=== PATIENT | male | born 1960 | race African-American/Black ===

== ENCOUNTER 2017-04-19 00:29 | Emergency (ER) | payer BC, OTHER ==
[~2017-04-19 00:29] MED LIST: ASPI81TA23 PO; ATOR40TA16 PO; BRIM0.2S4 EACH EYE; DORZ1SOL EACH EYE; LATA0.002 EACH EYE; LISI-515 PO; METO25TA3 PO; NAPR500 PO
[2017-04-19 00:35] VITALS: BP 154/99; PULSE 91; RESP 18; TEMP 98.5; O2SAT 98
[2017-04-19 00:40] VITALS: BP 152/102; PULSE 89; RESP 16; O2SAT 99
[2017-04-19] MEDS ORDERED: SODIUM CHLOR 0.9% 1000 ML INJ 1,000 ML IV ONE ×2 (00:52→01:22)
[2017-04-19] MEDS ORDERED: SODIUM CHLORIDE 0.9% FLUSH 10 ML FLUSH IVF PRN (01:00)
[2017-04-19] MEDS ORDERED: INSULIN HUMAN REGULAR 1,000 UNITS/10 ML VIAL IV PUSH ONE (01:00)
[2017-04-19 01:57] LABS: AUTOMATED NEUTROPHIL # 3.6 TH/MM3 (1.8-7.7); BASOPHIL # 0.1 TH/MM3 (0-0.2); BASOPHIL % 0.9 % (0.0-2.0); EOSINOPHIL # 0.3 TH/MM3 (0-0.4); EOSINOPHIL % 3.7 % (0.0-4.0); HEMATOCRIT 43.7 % (39.0-51.0); HEMOGLOBIN 14.3 GM/DL (13.0-17.0); LYMPH % 46.5 % (9.0-44.0); LYMPHOCYTE # 3.9 TH/MM3 (1.0-4.8); MEAN CELL VOLUME 87.1 FL (80.0-100.0); MEAN CORPUSCULAR HEMOGLOBIN 28.5 PG (27.0-34.0); MEAN CORPUSCULAR HGB CONC 32.7 % (32.0-36.0); MEAN PLATELET VOLUME 10.9 FL (7.0-11.0); MONO % 6.4 % (0.0-8.0); MONOCYTE # 0.5 TH/MM3 (0-0.9); NEUT % 42.5 % (16.0-70.0); PLATELET COUNT 156 TH/MM3 (150-450); RED BLOOD COUNT 5.01 MIL/MM3 (4.50-5.90); RED CELL DISTRIBUTION WIDTH 12.6 % (11.6-17.2); WHITE BLOOD COUNT 8.4 TH/MM3 (4.0-11.0)
[2017-04-19 02:01] LABS: BILIRUBIN, URINE NEG (NEG); BLOOD, URINE NEG (NEG); GLUCOSE,URINE 1000 OR GREATER mg/dL (NEG); KETONE, URINE NEG (NEG); NITRITE,URINE NEG (NEG); PH, URINE 5.5 (5.0-8.5); URINE LEUKOCYTE ESTERASE NEG (NEG)
[2017-04-19 02:02] LABS: CHLORIDE 102 MEQ/L (98-107); SODIUM (NA) 134 MEQ/L (136-145)
[2017-04-19 02:06] LABS: ALBUMIN 3.4 GM/DL (3.4-5.0); BICARBONATE 23.9 MEQ/L (21.0-32.0); CALCIUM 8.6 MG/DL (8.5-10.1)
[2017-04-19 02:17] LABS: ALKALINE PHOSPHATASE 105 U/L (45-117); ALT (GPT) 28 U/L (12-78); AST (GOT) 17 U/L (15-37); BLOOD UREA NITROGEN 21 MG/DL (7-18); GLOMERULAR FILTRATION RATE 64 ML/MIN (>89); TOTAL BILIRUBIN ADULT 0.3 MG/DL (0.2-1.0); TOTAL PROTEIN 6.8 GM/DL (6.4-8.2)
[2017-04-19 02:19] LABS: GLUCOSE,RANDOM 412 MG/DL (74-106)
--- NOTE | 2017-04-19 02:22 | PD ---
HPI Chief Complaint: Diabetic Time Seen by Provider: 00:52 Travel History International Travel<30 days: No Contact w/Intl Traveler<30days: No Traveled to known affect area: No History of Present Illness HPI 56-year-old male complains of elevated blood glucose at home about 512. He was diagnosed with diabetes a few days prior and was admitted to [facility]. He was discharged with plan to initiate metformin however was unable to fill a metformin prescription. Dizziness symptoms include a polyuria and polydipsia. No fever. No abdominal pain. Location endocrine. Timing constant. No modifying factor. PFSH Past Medical History Heart Rhythm Problems: No Cancer: No Cardiac Catheterization: No Cardiovascular Problems: Yes High Cholesterol: Yes Chest Pain: Yes (WHEN OMITS BP MED) Congestive Heart Failure: No Diabetes: Yes (BORDERLINE, NO MEDS) Patient Takes Glucophage: No Diminished Hearing: No Endocrine: No Gastrointestinal Disorders: No Glaucoma: Yes Genitourinary: No Heparin Induced Thrombocytopen: No Hypertension: Yes Immune Disorder: No Implanted Vascular Access Dvce: No Musculoskeletal: No Neurologic: No Psychiatric: No Reproductive: No Respiratory: No Immunizations Current: Yes Myocardial Infarction: No Thyroid Disease: No PNEUMOCCOCAL Vaccine (Year): 2010 ?: Not Past Surgical History Coronary Artery Bypass Graft: No Eye Surgery: Yes Joint Replacement: Yes (LEFT HIP) Pacemaker: No Other Surgery: Yes (HEMORRHOIDS) Family History Family Myocardial Infarction: No Social History Alcohol Use: Yes (BEER OCC) Tobacco Use: No Substance Use: No Allergies-Medications (Allergen,Severity, Reaction): Coded Allergies: No Known Allergies (Verified Allergy, Unknown, 04/18/17) Reported Meds & Prescriptions Reported Meds & Active Scripts Active Metoprolol Tartrate 25 Mg Tab 25 Mg PO BID Cosopt Pf Opth Drops (Dorzolamide-Timolol Pf Opth Drops) 22.3-6.8 mg/ml Soln 1 Drop EACH EYE BID Latanoprost Opth Drops (Latanoprost) 0.005% Drops 1 Drop EACH EYE HS Refrigerate until opened. Brimonidine Opth Drops (Brimonidine Tartrate) 0.2% Soln 1 Drop EACH EYE BID Lisinopril 20 Mg Tab 20 Mg PO DAILY Atorvastatin (Atorvastatin Calcium) 40 Mg Tab 40 Mg PO HS Reported Aspirin EC (Aspirin) 81 Mg Tabdr 81 Mg PO DAILY Review of Systems Except as stated in HPI: all other systems reviewed are Neg General / Constitutional: No: Fever Physical Exam Narrative GENERAL: 56-year-old male well-nourished well-developed no acute distress SKIN: Focused skin assessment warm/dry. HEAD: Atraumatic. Normocephalic. EYES: Pupils equal and round. No scleral icterus. No injection or drainage. ENT: No nasal bleeding or discharge. Mucous membranes pink and moist. NECK: Trachea midline. No JVD. CARDIOVASCULAR: Regular rate and rhythm. No murmur appreciated. RESPIRATORY: No accessory muscle use. Clear to auscultation. Breath sounds equal bilaterally. GASTROINTESTINAL: Abdomen soft, non-tender, nondistended. Hepatic and splenic margins not palpable. MUSCULOSKELETAL: No obvious deformities. No clubbing. No cyanosis. No edema. NEUROLOGICAL: Awake and alert. No obvious cranial nerve deficits. Motor grossly within normal limits. Normal speech. PSYCHIATRIC: Appropriate mood and affect; insight and judgment normal. Data Data Last Documented VS Vital Signs Date Time Temp Pulse Resp B/P (MAP) Pulse Ox O2 Delivery O2 Flow Rate FiO2 04/19/17 03:35 87 16 134/85 (101) 04/19/17 02:39 99 Room Air 04/19/17 00:35 98.5 Vital signs reviewed Orders Orders Complete Blood Count With Diff (04/19/17 00:52) Comprehensive Metabolic Panel (04/19/17 00:52) Beta Hydroxybutyrate (Acetone) (04/19/17 00:52) Urinalysis - C+S If Indicated (04/19/17 00:52) Blood Glucose (04/19/17 00:52) Blood Glucose (04/19/17 01:52) Blood Glucose (04/19/17 00:52) Ecg Monitoring (04/19/17 00:52) Iv Access Insert/Monitor (04/19/17 00:52) Oximetry (04/19/17 00:52) NPO (04/19/17 00:52) Sodium Chlor 0.9% 1000 Ml Inj (Ns 1000 M (04/19/17 00:52) Sodium Chlor 0.9% 1000 Ml Inj (Ns 1000 M (04/19/17 01:22) Sodium Chloride 0.9% Flush (Ns Flush) (04/19/17 01:00) Insulin Human Regular Inj (Novolin R Inj (04/19/17 01:00) Ed Discharge Order (04/19/17 04:02) Metformin (Glucophage) (04/19/17 04:30) Labs Laboratory Tests Test 04/19/17 01:30 White Blood Count 8.4 TH/MM3 Red Blood Count 5.01 MIL/MM3 Hemoglobin 14.3 GM/DL Hematocrit 43.7 % Mean Corpuscular Volume 87.1 FL Mean Corpuscular Hemoglobin 28.5 PG Mean Corpuscular Hemoglobin Concent 32.7 % Red Cell Distribution Width 12.6 % Platelet Count 156 TH/MM3 Mean Platelet Volume 10.9 FL Neutrophils (%) (Auto) 42.5 % Lymphocytes (%) (Auto) 46.5 % Monocytes (%) (Auto) 6.4 % Eosinophils (%) (Auto) 3.7 % Basophils (%) (Auto) 0.9 % Neutrophils # (Auto) 3.6 TH/MM3 Lymphocytes # (Auto) 3.9 TH/MM3 Monocytes # (Auto) 0.5 TH/MM3 Eosinophils # (Auto) 0.3 TH/MM3 Basophils # (Auto) 0.1 TH/MM3 CBC Comment DIFF FINAL Differential Comment Urine Color YELLOW Urine Turbidity CLEAR Urine pH 5.5 Urine Specific [place] 1.024 Urine Protein NEG mg/dL Urine Glucose (UA) 1000 OR GREATER mg/dL Urine Ketones NEG mg/dL Urine Occult Blood NEG Urine Nitrite NEG Urine Bilirubin NEG Urine Leukocyte Esterase NEG Urine WBC 0-2 /hpf Urine Squamous Epithelial Cells 0-5 /hpf Microscopic Urinalysis Comment CULT NOT INDICATED Blood Urea Nitrogen 21 MG/DL Creatinine 1.40 MG/DL Random Glucose 412 MG/DL Total Protein 6.8 GM/DL Albumin 3.4 GM/DL Calcium Level 8.6 MG/DL Alkaline Phosphatase 105 U/L Aspartate Amino Transf (AST/SGOT) 17 U/L Alanine Aminotransferase (ALT/SGPT) 28 U/L Total Bilirubin 0.3 MG/DL Sodium Level 134 MEQ/L Potassium Level 3.9 MEQ/L Chloride Level 102 MEQ/L Carbon Dioxide Level 23.9 MEQ/L Anion Gap 8 MEQ/L Estimat Glomerular Filtration Rate 64 ML/MIN B-Hydroxybutyrate 0.12 MMOL/L MDM Medical Decision Making Medical Screen Exam Complete: Yes Emergency Medical Condition: Yes Differential Diagnosis DKA, hyperglycemia, renal failure Narrative Course CBC & BMP Diagram 04/19/17 01:30 Total Protein 6.8, Albumin 3.4, Calcium Level 8.6, Alkaline Phosphatase 105, Aspartate Amino Transf (AST/SGOT) 17, Alanine Aminotransferase (ALT/SGPT) 28, Total Bilirubin 0.3 Patient has received 2 L normal saline and 4 units insulin. If the glucose normalizes the patient will be suitable for discharge with plan to initiate metformin tomorrow. Repeat glucose 260 and the patient's ready for discharge. First dose of Glucophage given here. Diagnosis Primary Impression: Hyperglycemia Additional Impression: Diabetes Qualified Codes: E11.8 - Type 2 diabetes mellitus with unspecified complications Med/Other Pt SpecificInfo: No Change to Meds Disposition: DISCHARGE HOME Condition: Stable Wilman Barros MD Apr 19, 2017 02:22
[2017-04-19 02:23] LABS: URINE COLOR YELLOW (YELLW/STRAW)
[2017-04-19 02:27] LABS: SQUAMOUS EPITHELIAL CELL URINE 0-5 /hpf (0-5); WBC, URINE 0-2 /hpf (0-5)
[2017-04-19 02:39] VITALS: BP 143/83; PULSE 82; RESP 16; O2SAT 99
[2017-04-19 03:35] VITALS: BP 134/85; PULSE 87; RESP 16
[2017-04-19] MEDS ORDERED: metFORMIN HCL 500 MG TAB PO ONE (04:30)
[2017-04-19 04:46] VITALS: BP 136/77
[2017-04-19] MEDS ORDERED: LISI-515 PO (12:23)
[2017-04-19] MEDS ORDERED: ATOR40TA16 PO (12:23)
[2017-04-19] MEDS ORDERED: METF500T PO (12:23)
[2017-04-19] MEDS ORDERED: GLIP5TAB8 PO (12:23)
== END 2017-04-19 04:50 | disposition home or self-care (01) ==
LOC: PHED 00:29
DX: E11.65 Type 2 diabetes mellitus with hyperglycemia (principal); E78.00 Pure hypercholesterolemia, unspecified; I10 Essential (primary) hypertension; H40.9 Unspecified glaucoma; Z79.82 Long term (current) use of aspirin
CPT/HCPCS: 80053; 81001; 82010; 85025; 96361; 96374; 99284; J1815; J7030

== ENCOUNTER 2017-09-26 13:54 | Emergency (ER) | payer BC, OTHER ==
[~2017-09-26] VITALS: Ht 172.7 cm; Wt 88.8 kg
[~2017-09-26 13:54] MED LIST changes: +GLIP5TAB8 PO; +METF500T PO; -NAPR500 PO
[2017-09-26 13:58] VITALS: BP 163/86; PULSE 90; RESP 16; TEMP 97.8; O2SAT 99
[2017-09-26] MEDS ORDERED: HEART MED (14:06)
[2017-09-26] MEDS ORDERED: INSULIN (14:06)
[2017-09-26] MEDS ORDERED: AZIT250T3 PO (14:35)
[2017-09-26] MEDS ORDERED: BENZ100 PO (14:35)
[2017-09-26] MEDS ORDERED: ALBUAER3 INH (14:35)
--- NOTE | 2017-09-26 14:35 | PD ---
HPI Chief Complaint: Cold / Flu Symptoms Time Seen by Provider: 14:07 Travel History International Travel<30 days: No Contact w/Intl Traveler<30days: No Traveled to known affect area: No History of Present Illness HPI 57-year-old male here with productive cough 1 week. He reports exposure to student who is currently hospitalized with pneumonia and was concerned by this news therefore came into the ER for evaluation. Denies fever or chills. Reports sputum production is colored. No chest pain or shortness of breath. Occasional wheezing. Symptom severity is mild to moderate. No aggravating or alleviating factors. PFSH Past Medical History Heart Rhythm Problems: No Cancer: No Cardiac Catheterization: No Cardiovascular Problems: Yes High Cholesterol: Yes Chest Pain: Yes (WHEN OMITS BP MED) Congestive Heart Failure: No Diabetes: Yes Patient Takes Glucophage: Yes Diminished Hearing: No Endocrine: No Gastrointestinal Disorders: No Glaucoma: Yes Genitourinary: No Heparin Induced Thrombocytopen: No Hypertension: Yes Immune Disorder: No Implanted Vascular Access Dvce: No Musculoskeletal: No Neurologic: No Psychiatric: No Reproductive: No Respiratory: No Immunizations Current: Yes Myocardial Infarction: No Thyroid Disease: No PNEUMOCCOCAL Vaccine (Year): 2010 Past Surgical History Coronary Artery Bypass Graft: No Eye Surgery: Yes Joint Replacement: Yes (LEFT HIP) Pacemaker: No Other Surgery: Yes (HEMORRHOIDS) Social History Alcohol Use: Yes (BEER OCC) Tobacco Use: No Substance Use: No Allergies-Medications (Allergen,Severity, Reaction): Coded Allergies: No Known Allergies (Verified Allergy, Unknown, 09/26/17) Reported Meds & Prescriptions Reported Meds & Active Scripts Active Glipizide 5 Mg Tab 5 Mg PO DAILY Take 30 minutes before a meal Metformin (Metformin HCl) 500 Mg Tab 1,000 Mg PO BIDPC Lisinopril 20 Mg Tab 20 Mg PO DAILY Cosopt Pf Opth Drops (Dorzolamide-Timolol Pf Opth Drops) 22.3-6.8 mg/ml Soln 1 Drop EACH EYE BID Latanoprost Opth Drops (Latanoprost) 0.005% Drops 1 Drop EACH EYE HS Refrigerate until opened. Brimonidine Opth Drops (Brimonidine Tartrate) 0.2% Soln 1 Drop EACH EYE BID Reported [Heart Med] [Insulin] Unknown Dose Review of Systems Except as stated in HPI: all other systems reviewed are Neg General / Constitutional: No: Fever Eyes: No: Visual changes HENT: No: Headaches Cardiovascular: No: Chest Pain or Discomfort Respiratory: Positive: Cough Gastrointestinal: No: Abdominal Pain Genitourinary: No: Dysuria Musculoskeletal: No: Pain Skin: No Rash Physical Exam Narrative GENERAL: Alert and well-appearing 57-year-old male. SKIN: Warm and dry. HEAD: Normocephalic. EYES: No injection or drainage. NECK: Supple CARDIOVASCULAR: Regular rate and rhythm without murmurs, gallops, or rubs. RESPIRATORY: Breath sounds equal bilaterally. No accessory muscle use. Rhonchorous cough GASTROINTESTINAL: Abdomen soft, non-tender, nondistended. MUSCULOSKELETAL: No cyanosis, or edema. BACK: Nontender without obvious deformity. No CVA tenderness. Data Data Last Documented VS Vital Signs Date Time Temp Pulse Resp B/P (MAP) Pulse Ox O2 Delivery O2 Flow Rate FiO2 09/26/17 13:58 97.8 90 16 163/86 (111) 99 MDM Medical Decision Making Medical Screen Exam Complete: Yes Emergency Medical Condition: Yes Differential Diagnosis Bronchitis, pneumonia, influenza Narrative Course 57-year-old male here with bronchitis. He is nontoxic appearing. He will be treated with azithromycin, Tessalon Perles, bronchodilator. Diagnosis Primary Impression: Bronchitis Referrals: Primary Care Physician Departure Forms: Tests/Procedures, Work Release Enter return to work date: September 28, 2017 Additional Instructions: Antibiotics as directed. Drink plenty of fluid. Follow-up with your primary doctor. Return if you have new or worsening symptoms. Scripts Albuterol 8.5 GM Inh (Proair Hfa 8.5 GM Inh) 90 Mcg/Act Aer 2 PUFF INH Q4-6H Y for SHORTNESS OF BREATH, #1 INHALER 0 Refills 108 mcg/actuation Prov: Ursula Zacarias [employer] 09/26/17 Benzonatate (Tessalon Perles) 100 Mg Cap 200 MG PO TID Y for COUGH, #12 CAP 0 Refills Prov: Ursula Zacarias [employer] 09/26/17 Azithromycin (Azithromycin) 250 Mg Tab 250 MG PO DIRECTED for Infection, #6 TAB 0 Refills Take 2 tabs (500 mg) on day 1 then 1 tab daily x 4 days. Prov: Ursula Zacarias [employer] 5/28/18 Disposition: 01 DISCHARGE HOME Condition: Stable Leedy,Ursula N [employer] September 26, 2017 14:35
== END 2017-09-26 14:50 | disposition home or self-care (01) ==
LOC: PHEFT 13:54
DX: J40 Bronchitis, not specified as acute or chronic (principal); E11.9 Type 2 diabetes mellitus without complications; E78.00 Pure hypercholesterolemia, unspecified; I10 Essential (primary) hypertension; H40.9 Unspecified glaucoma; Z79.84 Long term (current) use of oral hypoglycemic drugs; Z79.899 Other long term (current) drug therapy
CPT/HCPCS: 99283

== ENCOUNTER 2017-10-21 06:20 | Inpatient (IN) | payer OTHER ==
[2017-10-21] VITALS (11 sets, daily range): BP systolic 136–168; BP diastolic 78–101; PULSE 71–90; RESP 16–18; TEMP 98.4; O2SAT 97–98
[~2017-10-21] VITALS: Ht 172.7 cm; Wt 92.7 kg
[~2017-10-21 06:20] MED LIST changes: +ALBUAER3 INH; -ASPI81TA23 PO; -ATOR40TA16 PO; +AZIT250T3 PO; +BENZ100 PO; +HEART MED; +INSULIN; -METO25TA3 PO
[2017-10-21] MEDS ORDERED: IODIXANOL 320 MG/ML 10 ML VIAL (for Rad CT) IVCONTRAST ONE (06:21)
--- NOTE | 2017-10-21 07:33 | RADRPT ---
EXAM DATE: 10/21/2017 7:29 AM EDT AGE/SEX: 57 years / Male INDICATIONS: Patient complains of headache and right ear pain. CLINICAL DATA: This is the patient's initial encounter. Patient reports that signs and symptoms have been present for 1 day and indicates a pain score of 10/10. MEDICAL/SURGICAL HISTORY: Hypertension. Diabetes. None. RADIATION DOSE: 38.35 CTDI (mGy) COMPARISON: No prior exams available for comparison. TECHNIQUE: CT of the head without contrast. Using automated exposure control and adjustment of the mA and/or kV according to patient size, radiation dose was kept as low as reasonably achievable to ob tain optimal diagnostic quality images. DICOM format image data is available electronically for revi ew and comparison. FINDINGS: Cerebrum: The ventricles are normal. No midline shift, mass lesion, hemorrhage or acute infarction. No extraaxial fluid collections are seen. Posterior Fossa: The cerebellum and brainstem demonstrate no acute abnormality. The 4th ventricle is midline. The cerebellopontine angle is within normal limits. Extracranial: The visualized sinuses are clear. The mastoid air cells are clear. Skull: The calvaria is intact. No skull fracture. CONCLUSION: Negative noncontrast head CT. No abnormality is identified to explain the clinical symptoms. Electronically signed by: Jose Maria Olivera MD 10/21/2017 7:31 AM EDT
[2017-10-21] MEDS ORDERED: LEVEMIR SQ ×2 (07:40)
--- NOTE | 2017-10-21 07:45 | PD ---
HPI Chief Complaint: Headache Time Seen by Provider: 07:28 Travel History International Travel<30 days: No Contact w/Intl Traveler<30days: No Traveled to known affect area: No History of Present Illness HPI Patient presents to the emergency department complaining of headache and right ear pain that started 4 AM this morning. New onset. Pain is described as being 10 out of 10, constant, moves to right ear, on the right side of his head , no alleviating or aggravating factors, he took pain medication this morning with no relief of symptoms. Dates that his neck is somewhat sore on the right side, also states that the light bothers his headache just a little bit. He denies fever, chills, nausea, vomiting, numbness, tingling, vision change, slurred speech, chest pain, shortness of breath, rash, difficulty ambulating. PFSH Past Medical History Heart Rhythm Problems: No Cancer: No Cardiac Catheterization: No Cardiovascular Problems: Yes (HTN ) High Cholesterol: Yes Chest Pain: Yes (WHEN OMITS BP MED) Congestive Heart Failure: No Diabetes: Yes (INSULIN ) Patient Takes Glucophage: No Diminished Hearing: No Endocrine: No Gastrointestinal Disorders: No Glaucoma: Yes Genitourinary: No Heparin Induced Thrombocytopen: No Hypertension: Yes Immune Disorder: No Implanted Vascular Access Dvce: No Musculoskeletal: No Neurologic: No Psychiatric: No Reproductive: No Respiratory: No Immunizations Current: Yes Myocardial Infarction: No Thyroid Disease: No PNEUMOCCOCAL Vaccine (Year): 2010 Past Surgical History Coronary Artery Bypass Graft: No Eye Surgery: Yes Joint Replacement: Yes (LEFT HIP) Pacemaker: No Other Surgery: Yes (HEMORRHOIDS) Social History Alcohol Use: Yes (BEER OCC) Tobacco Use: No Substance Use: No Allergies-Medications (Allergen,Severity, Reaction): Coded Allergies: No Known Allergies (Verified Allergy, Unknown, 09/26/17) Reported Meds & Prescriptions Reported Meds & Active Scripts Active Glipizide 5 Mg Tab 5 Mg PO DAILY Take 30 minutes before a meal Metformin (Metformin HCl) 500 Mg Tab 1,000 Mg PO BIDPC Lisinopril 20 Mg Tab 20 Mg PO DAILY Cosopt Pf Opth Drops (Dorzolamide-Timolol Pf Opth Drops) 22.3-6.8 mg/ml Soln 1 Drop EACH EYE BID Latanoprost Opth Drops (Latanoprost) 0.005% Drops 1 Drop EACH EYE HS Refrigerate until opened. Brimonidine Opth Drops (Brimonidine Tartrate) 0.2% Soln 1 Drop EACH EYE BID Reported Levemir Inj (Insulin Detemir) 1,000 unit/ 10 ML Vial 10 Units SQ HS Do not mix with any other Insulin. Levemir Inj (Insulin Detemir) 1,000 unit/ 10 ML Vial 30 Units SQ AC BREAKFAST Do not mix with any other Insulin. [Heart Med] Review of Systems Except as stated in HPI: all other systems reviewed are Neg Physical Exam Narrative GENERAL: No acute distress. SKIN: Focused skin assessment warm/dry. HEAD: Atraumatic. Normocephalic. Positive swelling anterior to ear bilat, he is also tender to palpation. EYES: Pupils equal and round. Extraocular muscles intact bilaterally. No scleral icterus. No injection or drainage. ENT: No nasal bleeding or discharge. Mucous membranes pink and moist. TMs clear bilaterally. NECK: Trachea midline. No JVD. CARDIOVASCULAR: Regular rate and rhythm. No murmur appreciated. RESPIRATORY: No accessory muscle use. Clear to auscultation. Breath sounds equal bilaterally. GASTROINTESTINAL: Abdomen soft, non-tender, nondistended. Hepatic and splenic margins not palpable. MUSCULOSKELETAL: No obvious deformities. No clubbing. No cyanosis. No edema. NEUROLOGICAL: Awake and alert. Patient unable to keep right eye shut. Also unable to show all of his teeth when he smiles on the right. Motor grossly within normal limits. Normal speech. PSYCHIATRIC: Appropriate mood and affect; insight and judgment normal. NIH stroke scale: 2 R facial palsy Data Data Last Documented VS Vital Signs Date Time Temp Pulse Resp B/P (MAP) Pulse Ox O2 Delivery O2 Flow Rate FiO2 10/21/17 10:16 84 18 157/91 (113) 97 Room Air 10/21/17 06:[address] Brain W/O Iv Contrast(Rout) (10/21/17 06:36) Electrocardiogram (10/21/17 07:37) Complete Blood Count With Diff (10/21/17 07:37) Comprehensive Metabolic Panel (10/21/17 07:37) Prothrombin Time / Inr (Pt) (10/21/17 07:37) Act Partial Throm Time (Ptt) (10/21/17 07:37) Magnesium (Mg) (10/21/17 07:37) Chest, Single Ap (10/21/17 07:37) Iv Access Insert/Monitor (10/21/17 07:37) Ecg Monitoring (10/21/17 07:37) Oximetry (10/21/17 07:37) Ckmb (Isoenzyme) Profile (10/21/17 07:37) Troponin I (10/21/17 07:37) Ct Facial Bones W/O Iv Cont (10/21/17 07:37) CKMB (10/21/17 04:55) CKMB% (10/21/17 04:55) Ct Brain W/O Iv Contrast(Rout) (10/21/17 ) Cta Brain W Iv Contrast W 3d (10/21/17 09:48) Cta Neck W Iv Contrast W 3d (10/21/17 09:48) Labetalol Inj (Trandate Inj) (10/21/17 10:00) Iodixanol 320 Inj (Rad Ct) (Visipaque 32 (10/21/17 06:21) Mri Brain W/O Contrast (10/21/17 10:19) Sodium Chlor 0.9% 250 Ml Inj (Ns 250 Ml (10/21/17 10:30) Sodium Chlor 0.9% 1000 Ml Inj (Ns 1000 M (10/21/17 10:30) ^ Call Pharmacy (10/21/17 10:29) Nih Stroke Scale - Nihss .ONCE (10/21/17 10:29) Urinary Catheter Insert/Apply (10/21/17 10:29) Anticoagulant Alert (10/21/17 10:29) ^ Post Infusion Restrictions (10/21/17 10:29) ^ Medication Alert (10/21/17 10:29) Vital Signs (Adult) .As directed (10/21/17 10:29) Notify Dr: Blood Pressure (10/21/17 10:29) ^ Medication Alert (10/21/17 10:29) Alteplase Bolus (Activase Bolus) (10/21/17 10:30) Alteplase Drip (Activase Drip) (10/21/17 10:30) Sodium Chloride 0.9% Inj (Ns Inj) (10/21/17 10:30) Nursing Information (Misc Nursing Inform (10/21/17 10:30) Resp Oxygen Nc Stroke (10/21/17 ) Us Carotid Arteries Comp Bilat (10/21/17 ) Echo 2d Comp With Doppler (10/21/17 ) Valacyclovir (Valtrex) (10/21/17 21:00) Prednisone (Deltasone) (10/22/17 09:00) Mri Brain W&W/O Contrast (10/21/17 ) Admit Order (Ed Use Only) (10/21/17 10:37) Labs Laboratory Tests Test 10/21/17 04:55 White Blood Count 7.6 TH/MM3 Red Blood Count 4.90 MIL/MM3 Hemoglobin 14.0 GM/DL Hematocrit 42.0 % Mean Corpuscular Volume 85.7 FL Mean Corpuscular Hemoglobin 28.6 PG Mean Corpuscular Hemoglobin Concent 33.3 % Red Cell Distribution Width 13.0 % Platelet Count 166 TH/MM3 Mean Platelet Volume 9.8 FL Neutrophils (%) (Auto) 63.9 % Lymphocytes (%) (Auto) 28.7 % Monocytes (%) (Auto) 5.4 % Eosinophils (%) (Auto) 1.3 % Basophils (%) (Auto) 0.7 % Neutrophils # (Auto) 4.8 TH/MM3 Lymphocytes # (Auto) 2.2 TH/MM3 Monocytes # (Auto) 0.4 TH/MM3 Eosinophils # (Auto) 0.1 TH/MM3 Basophils # (Auto) 0.1 TH/MM3 CBC Comment DIFF FINAL Differential Comment Prothrombin Time 11.0 SEC Prothromb Time International Ratio 1.1 RATIO Activated Partial Thromboplast Time 24.1 SEC Blood Urea Nitrogen 20 MG/DL Creatinine 1.35 MG/DL Random Glucose 243 MG/DL Total Protein 6.6 GM/DL Albumin 3.4 GM/DL Calcium Level 8.7 MG/DL Magnesium Level 1.6 MG/DL Alkaline Phosphatase 85 U/L Aspartate Amino Transf (AST/SGOT) 8 U/L Alanine Aminotransferase (ALT/SGPT) 18 U/L Total Bilirubin 0.3 MG/DL Sodium Level 135 MEQ/L Potassium Level 4.2 MEQ/L Chloride Level 102 MEQ/L Carbon Dioxide Level 24.2 MEQ/L Anion Gap 9 MEQ/L Estimat Glomerular Filtration Rate 67 ML/MIN Total Creatine Kinase 163 U/L Creatine Kinase MB 1.4 NG/ML Troponin I LESS THAN 0.02 NG/ML MDM Medical Decision Making Medical Screen Exam Complete: Yes Emergency Medical Condition: Yes Interpretation(s) ECG: Sinus rhythm, rate 73, normal intervals, right axis, Labs: Creatinine and glucose increased Last Impressions Head CTA 10/21/17 0948 Signed Impressions: CONCLUSION: Negative CTA of the head. Maxillofacial CT 10/21/17736 Signed Impressions: CONCLUSION: 1. The orbits appear normal. 2. 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 3. Mild asymmetry to the tonsils with the right side appearing slightly more p rominent. This area can be directly inspected. Chest X-Ray 10/21/17736 Signed Impressions: CONCLUSION: No acute cardiopulmonary process. Head CT 10/21/1736 Signed Impressions: CONCLUSION: Negative noncontrast head CT. No abnormality is identified to explain the clini edmund symptoms. Head CT 10/21/17 0000 Signed Impressions: CONCLUSION: Negative noncontrast head CT. Differential Diagnosis CVA, TIA, hypertensive urgency, abscess, mass/tumor Narrative Course Patient presents to the emergency department complaining of right-sided headache and ear pain. Has an area of swelling and tenderness to palpation underneath right jaw. He is afebrile, hypertensive, remaining vital signs stable. He said he took his blood pressure medicine this morning. Head CT was ordered by outgoing MD which was normal. Will patient on a monitor worker, IV access obtained, chest x-ray/EKG/labs/face CT ordered. NIH stroke scale was 2 with 0 838 secondary to right sided facial paralysis. 0940: Advised the patient has developed slurred speech. Stroke alert was called. Repeat NIH stroke scale was 6. 0950: Spoke to Dr. Javier advised to repeat CT head and get CTA head and neck. Also patient's blood pressure was 164/102, advised to get 5 mg of labetolol. 1005: Dr. Javier in ER. Patient back from CT. CT head and neck negative. Patient was consented for TPA by Dr. Javier. Was advised of the risk of bleeding 6%. Patient received TPA at 1030 and was admitted to the ICU. Diagnosis Primary Impression: Stroke Qualified Codes: I63.9 - Cerebral infarction, unspecified Admitting Information Admitting Physician Requests: Admit Condition: Stable Pat Allen MD Oct 21, 2017 07:45
[2017-10-21 08:10] LABS: AUTOMATED NEUTROPHIL # 4.8 TH/MM3 (1.8-7.7); BASOPHIL # 0.1 TH/MM3 (0-0.2); BASOPHIL % 0.7 % (0.0-2.0); EOSINOPHIL # 0.1 TH/MM3 (0-0.4); EOSINOPHIL % 1.3 % (0.0-4.0); LYMPH % 28.7 % (9.0-44.0); LYMPHOCYTE # 2.2 TH/MM3 (1.0-4.8); MEAN CELL VOLUME 85.7 FL (80.0-100.0); MEAN CORPUSCULAR HEMOGLOBIN 28.6 PG (27.0-34.0); MEAN CORPUSCULAR HGB CONC 33.3 % (32.0-36.0); MEAN PLATELET VOLUME 9.8 FL (7.0-11.0); MONO % 5.4 % (0.0-8.0); MONOCYTE # 0.4 TH/MM3 (0-0.9); NEUT % 63.9 % (16.0-70.0); PLATELET COUNT 166 TH/MM3 (150-450); WHITE BLOOD COUNT 7.6 TH/MM3 (4.0-11.0)
[2017-10-21 08:20] LABS: INTERNATIONAL NORMALIZED RATIO 1.1 RATIO
[2017-10-21 08:27] LABS: ALBUMIN 3.4 GM/DL (3.4-5.0); AST (GOT) 8 U/L (15-37); BICARBONATE 24.2 MEQ/L (21.0-32.0); BLOOD UREA NITROGEN 20 MG/DL (7-18); CALCIUM 8.7 MG/DL (8.5-10.1); CHLORIDE 102 MEQ/L (98-107); CREATININE 1.35 MG/DL (0.60-1.30); GLOMERULAR FILTRATION RATE 67 ML/MIN (>89); GLUCOSE,RANDOM 243 MG/DL (74-106); MAGNESIUM 1.6 MG/DL (1.5-2.5); SODIUM (NA) 135 MEQ/L (136-145)
[2017-10-21 08:28] LABS: ALT (GPT) 18 U/L (12-78)
[2017-10-21 08:32] LABS: ALKALINE PHOSPHATASE 85 U/L (45-117); TOTAL BILIRUBIN ADULT 0.3 MG/DL (0.2-1.0); TOTAL PROTEIN 6.6 GM/DL (6.4-8.2); TROPONIN I LESS THAN 0.02 NG/ML (0.02-0.05)
--- NOTE | 2017-10-21 09:08 | RADRPT ---
EXAM DATE: 10/21/2017 8:03 AM EDT AGE/SEX: 57 years / Male INDICATIONS: Headache and chest pain. CLINICAL DATA: This is the patient's initial encounter. Patient reports that signs and symptoms have been present for 1 day and indicates a pain score of 3/10. MEDICAL/SURGICAL HISTORY: Diabetes mellitus type II. Hypertension. None. COMPARISON: [facility] – [place]ST SINGLE AP, 10/05/2015. . FINDINGS: A single AP view of the chest demonstrates the lungs to be symmetrically aerated without evidence of mass, infiltrate or effusion. The cardiomediastinal contours are unremarkable. Osseous structures a re intact. CONCLUSION: No acute cardiopulmonary process. Electronically signed by: Jose Maria Garcia MD 10/21/2017 9:07 AM EDT
--- NOTE | 2017-10-21 09:50 | RADRPT ---
EXAM DATE: 10/21/2017 8:33 AM EDT AGE/SEX: 57 years / Male INDICATIONS: Pain and swelling behind right ear, difficulty keeping right eye closed CLINICAL DATA: This is the patient's initial encounter. Patient reports that signs and symptoms have been present for 1 day and indicates a pain score of 1/10. MEDICAL/SURGICAL HISTORY: . . RADIATION DOSE: 61.50 CTDI (mGy) COMPARISON: No prior exams available for comparison. TECHNIQUE: Contiguous images in the axial and coronal planes were obtained using helical multirow de tector technique. Using automated exposure control and adjustment of the mA and/or kV according to p atient size, radiation dose was kept as low as reasonably achievable to obtain optimal diagnostic hoa lity images. DICOM format image data is available electronically for review and comparison. FINDINGS: Orbits: The orbital and infraorbital osseous structures are intact. The retroconal structures have a normal configuration. No radiopaque foreign bodies are seen. Nasal Bone: The nasal bone and maxillary spine are intact. Zygomatic Arches: Symmetric without evidence of fracture. Sinuses: The maxillary, ethmoid, and frontal sinuses are intact. No air-fluid levels seen. There is a 0.7 cm osteoma seen at the inferior medial left frontal sinus. Nasal Cavity: The nasal septum is intact and midline. The lacrimal ducts are intact. Soft Tissues: No radiopaque foreign bodies seen. There is minimal asymmetry to the tonsils with the right tonsil appearing slightly larger than the left tonsil.. Intracranial: No intracranial air seen. Cribriform Plate: Grossly intact. CONCLUSION: 1. The orbits appear normal. 2. 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 3. Mild asymmetry to the tonsils with the right side appearing slightly more prominent. This area ca n be directly inspected. Electronically signed by: Jose Maria Garcia MD 10/21/2017 9:48 AM EDT
[2017-10-21] MEDS ORDERED: LABETALOL HCL 100 MG/20 ML VIAL IV PUSH ONE (10:00)
--- NOTE | 2017-10-21 10:25 | RADRPT ---
EXAM DATE: 10/21/2017 10:03 AM EDT AGE/SEX: 57 years / Male INDICATIONS: Stroke, slurred speech, right facial droop. CLINICAL DATA: This is the patient's initial encounter. Patient reports that signs and symptoms have been present for 1 day and indicates a pain score of 0/10. MEDICAL/SURGICAL HISTORY: Hypertension. Diabetes mellitus type I. None. RADIATION DOSE: 56.35 CTDI (mGy) COMPARISON: [facility] – [place], CT BRAIN W/O CONTRAST, 10/21/2017. . Report was called by [ ] TECHNIQUE: CT of the head without contrast. Using automated exposure control and adjustment of the mA and/or kV according to patient size, radiation dose was kept as low as reasonably achievable to ob tain optimal diagnostic quality images. DICOM format image data is available electronically for revi ew and comparison. FINDINGS: Cerebrum: The ventricles are normal for age. No evidence of midline shift, mass lesion, hemorrhage or acute infarction. No extraaxial fluid collections are seen. Posterior Fossa: The cerebellum and brainstem are intact. The 4th ventricle is midline. The cerebe llopontine angle is unremarkable. Extracranial: The visualized portion of the orbits is intact. Skull: The calvaria is intact. No evidence of skull fracture. CONCLUSION: Negative noncontrast head CT. Electronically signed by: Jose Maria Garcia MD 10/21/2017 10:24 AM EDT
--- NOTE | 2017-10-21 10:29 | RADRPT ---
EXAM DATE: 10/21/2017 10:17 AM EDT AGE/SEX: 57 years / Male INDICATIONS: Stroke alert, slurred speech and right facial droop. CLINICAL DATA: This is the patient's initial encounter. Patient reports that signs and symptoms have been present for 1 day and indicates a pain score of 0/10. MEDICAL/SURGICAL HISTORY: Hypertension. Diabetes. None. RADIATION DOSE: 10.54 CTDI (mGy) ; Combined studies COMPARISON: No prior exams available for comparison. TECHNIQUE: Volumetric scanning was performed using a multi-row detector CT scanner during bolus infu renetta of 50 ml Visipaque 320 (iodixanol) nonionic water-soluble contrast as a single exam dose. The data was post processed with a variety of visualization algorithms including full volume maximum int ensity projection, multi-planar sliding thin slab reformation, curved planar reformation, and surface rendering techniques. Using automated exposure control and adjustment of the mA and/or kV according to patient size, radiation dose was kept as low as reasonably achievable to obtain optimal diagnosti c quality images. DICOM format image data is available electronically for review and comparison. FINDINGS: There is excellent visualization of the major intracranial arteries out to the second-order branch ve ssels. There is no evidence for aneurysm, vessel truncation or stenosis, and no evidence for vascula r malformation. CONCLUSION: Negative CTA of the head. Electronically signed by: Jose Maria Garcia MD 10/21/2017 10:27 AM EDT
[2017-10-21] MEDS ORDERED: NURSING INFORMATION XX PRN (10:30)
[2017-10-21] MEDS ORDERED: ALTEPLASE DRIP IV ONE (10:30)
[2017-10-21] MEDS ORDERED: SODIUM CHLORIDE 0.9% 50 ML BAG IVF ONE (10:30)
[2017-10-21] MEDS ORDERED: SODIUM CHLOR 0.9% 250 ML INJ 250 ML IV ONE (10:30)
[2017-10-21] MEDS ORDERED: ALTEPLASE BOLUS 9 MG/9 ML SYR IV ONE (10:30)
[2017-10-21] MEDS ORDERED: SODIUM CHLOR 0.9% 1000 ML INJ 1,000 ML IV SCH (10:30)
--- NOTE | 2017-10-21 10:56 | MB ---
cc: Atilio Javier MD, PhD DATE: 10/21/2017 REASON FOR CONSULTATION: Stroke alert. HISTORY OF PRESENT ILLNESS: This is a 57-year-old man with history of diabetes and hypertension, who woke up this morning and noted pain in the right ear, as well as headache, presented to the ER. Initially NIH stroke scale was 2. At 9:30, he developed acute onset of right facial droop, slurred speech and right leg weakness. Difficulty raising the leg above the bed. He denies any prior history of stroke or TIA. PAST MEDICAL HISTORY: History of diabetes, history of hypertension, history of left hip surgery. ALLERGIES: NONE KNOWN. MEDICATIONS AT HOME: 1. Glipizide. 2. Metformin. 3. Lisinopril. 4. Cosopt eye drops 5. Latanoprost. 6. Brimonidine. 7. Levemir insulin. 8. Fioricet as needed for headache. NEUROLOGICAL EXAMINATION: VITAL SIGNS: Blood pressure is 157/91, pulse is 84 and regular, respirations are 18, temperature 98 degrees. HIGHER CORTICAL FUNCTION: He is alert and oriented. Speech is extremely dysarthric. CRANIAL NERVES: He has had a right facial droop. There is some element that appears to be lower motor neuron versus upper motor neuron. Extraocular movements intact. Pupils are equal and reactive. MOTOR EXAM: He has got normal strength in the upper extremities; however, he is weak in the right leg greater than the left leg. He has difficulty holding the right leg up off the bed. Reflexes are symmetric. IMAGING STUDIES: CT brain negative. CTA of the brain is negative. No large vessel occlusion. He has had swelling of the mandible and a CT of the facial bones showed no definite abnormality. There is some mild asymmetry to the tonsils. LABORATORY DATA: The white count is 7600; hemoglobin 14; hematocrit 42%; platelet count 166,000. His PT 11, INR 1.1, PTT 24.1. Sodium is 135, potassium 4.2, chloride 102, CO2 of 24, BUN is 20, creatinine 1.35, GFR 67, AST 8, ALT is 18. IMPRESSION: Probable left hemisphere stroke with severe dysarthria, right leg weakness and the right facial droop. In addition, there may be a component of a lower motor neuron VII palsy. Rule out early Dean Bentley syndrome in addition to stroke. RECOMMENDATION: Because of the stroke-like symptoms, I did recommend just TPA. I did discuss this with the patient including the 6% risk of hemorrhage. He wishes to proceed with IV TPA. This will be administered per protocol. Following the TPA, patient to be admitted to the ____ with close of vital signs and neuro checks. No antiplatelets or anticoagulants for 24 hours. We will repeat a CT 24 hours after TPA administered. I also recommend obtaining an MRI of the brain, as well as a carotid ultrasound and echocardiogram and lipid panel. Thank you for asking me to see this nice man in consult. Atilio Javier MD, PhD [place] , 10:36 AM , 10:55 AM
[2017-10-21] MEDS ORDERED: GLUCAGON 1 MG/ML VIAL OTHER PRN (11:45)
[2017-10-21] MEDS ORDERED: LABETALOL HCL 100 MG/20 ML VIAL IV PUSH PRN (11:45)
[2017-10-21] MEDS ORDERED: SODIUM CHLORIDE 0.9% FLUSH 10 ML FLUSH IV FLUSH PRN (11:45)
[2017-10-21] MEDS ORDERED: DEXTROSE 50% IN WATER 50 ML VIAL(D50) IV PUSH PRN (11:45)
[2017-10-21] MEDS: SODIUM CHLOR 0.9% 1000 ML INJ 1,000 ML IV SCH (11:57)
[2017-10-21] MEDS: INSULIN ASPART SUPPLEMENTAL SCALE SQ SCH ×4 (12:00→21:00)
--- NOTE | 2017-10-21 12:43 | EKG ---
Date Performed: 10/21/2017 Time Performed: 07:48:45 PTAGE: 57 years EKG: Sinus rhythm BORDERLINE RIGHT AXIS DEVIATION NONSPECIFIC T-WAVE ABNORMALITY BORDERLINE ECG Since the PREVIOUS TRACING , no significant change noted PREVIOUS TRACIN10/05/2015 08.44 DOCTOR: Jose Montano Interpretating Date/Time 10/21/2017 12:40:32
[2017-10-21] MEDS ORDERED: GADODIAMIDE PF 287 MG/ML 20 ML VIAL (for RAD MRI) IVCONTRAST ONE (15:00)
--- NOTE | 2017-10-21 15:34 | RADRPT ---
EXAM DATE: 10/21/2017 2:02 PM EDT AGE/SEX: 57 years / Male INDICATIONS: . Right sided facial droop. CLINICAL DATA: This is the patient's initial encounter. Patient reports that signs and symptoms have been present for 1 day and indicates a pain score of 0/10. MEDICAL/SURGICAL HISTORY: Hypertension. Diabetes mellitus type II. Hemorrhoidectomy. Lt hip re placement COMPARISON: [facility] – [place], [place] BRAIN W/O CONTRAST, 10/21/2017. . TECHNIQUE: Multiplanar, multisequence examination of the brain was performed without and with 19 ml O mniscan (gadodiamide) contrast as a single exam dose. FINDINGS: Cerebrum: The ventricles are normal for age. No evidence of midline shift, mass lesion, hemorrhage or acute infarction. No extraaxial fluid collections are seen. The pituitary gland and suprasellar cistern are normal in configuration. White Matter: No significant signal abnormalities are seen in the white matter. Posterior Fossa: The cerebellum and brainstem are intact. The 4th ventricle is midline. The cerebel lopontine angle is unremarkable. The cerebellar tonsils are normal in position. Diffusion Imaging: No focal areas of restricted diffusion are seen. No evidence of acute infarction . Extracranial: The visualized portions of the orbits and paranasal sinuses are unremarkable. There is susceptibility artifact over the mouth presumably from dental hardware. Post Contrast: No abnormal areas of parenchymal or dural enhancement. No evidence of blood-brain ba rrier breakdown. CONCLUSION: Negative brain MRI examination. Electronically signed by: Jose Maria Garcia MD 10/21/2017 3:33 PM EDT
[2017-10-21] MEDS: MORPHINE SULFATE 4 MG/ML INJ IV PRN (19:08)
--- NOTE | 2017-10-21 20:14 | HHI.HP ---
HPI Service Critical Care Medicine Primary Care Physician LIGIA Butterfield Admission Diagnosis stroke Diagnosis: Travel History International Travel<30 Days: No Contact w/Intl Traveler <30 Da: No Traveled to Known Affected Are: No History of Present Illness HPI Patient presents to the emergency department complaining of headache and right ear pain that started 4 AM this morning. New onset. Pain is described as being 10 out of 10, constant, moves to right ear, on the right side of his head , no alleviating or aggravating factors, he took pain medication this morning with no relief of symptoms. Dates that his neck is somewhat sore on the right side, also states that the light bothers his headache just a little bit. He denies fever, chills, nausea, vomiting, numbness, tingling, vision change, slurred speech, chest pain, shortness of breath, rash, difficulty ambulating. Following arrival in the ER patient developed slurred speech and right-sided weakness. Stroke alert was called patient underwent CTA and head CT which was negative. Dr. Javier from neurology evaluated patient and he was administered TPA following which patient was accepted for admission by critical care medicine service. Following administration of TPA right-sided weakness resolved however right facial weakness persisted. When I evaluated the patient in the ICU he was resting comfortably though complaining of significant pain involving his right ear and headache. PFSH Past Medical History Heart Rhythm Problems: No Cancer: No Cardiac Catheterization: No Cardiovascular Problems: Yes (HTN ) High Cholesterol: Yes Chest Pain: Yes (WHEN OMITS BP MED) Congestive Heart Failure: No Diabetes: Yes (INSULIN ) Patient Takes Glucophage: No Diminished Hearing: No Endocrine: No Gastrointestinal Disorders: No Glaucoma: Yes Genitourinary: No Heparin Induced Thrombocytopen: No Hypertension: Yes Immune Disorder: No Implanted Vascular Access Dvce: No Musculoskeletal: No Neurologic: No Psychiatric: No Reproductive: No Respiratory: No Immunizations Current: Yes Myocardial Infarction: No Thyroid Disease: No PNEUMOCCOCAL Vaccine (Year): 2010 Past Surgical History Coronary Artery Bypass Graft: No Eye Surgery: Yes Joint Replacement: Yes (LEFT HIP) Pacemaker: No Other Surgery: Yes (HEMORRHOIDS) Social History Alcohol Use: Yes (BEER OCC) Tobacco Use: No Substance Use: No Allergies-Medications (Allergen,Severity, Reaction): Coded Allergies: No Known Allergies (Verified Allergy, Unknown, 09/26/17) Reported Meds & Prescriptions Reported Meds & Active Scripts Active Glipizide 5 Mg Tab 5 Mg PO DAILY Take 30 minutes before a meal Metformin (Metformin HCl) 500 Mg Tab 1,000 Mg PO BIDPC Lisinopril 20 Mg Tab 20 Mg PO DAILY Cosopt Pf Opth Drops (Dorzolamide-Timolol Pf Opth Drops) 22.3-6.8 mg/ml Soln 1 Drop EACH EYE BID Latanoprost Opth Drops (Latanoprost) 0.005% Drops 1 Drop EACH EYE HS Refrigerate until opened. Brimonidine Opth Drops (Brimonidine Tartrate) 0.2% Soln 1 Drop EACH EYE BID Reported Levemir Inj (Insulin Detemir) 1,000 unit/ 10 ML Vial 10 Units SQ HS Do not mix with any other Insulin. Levemir Inj (Insulin Detemir) 1,000 unit/ 10 ML Vial 30 Units SQ AC BREAKFAST Do not mix with any other Insulin. [Heart Med] Review of Systems Except as stated in HPI: all other systems reviewed are Neg Physical Exam Vital Signs Vital Signs Date Time Temp Pulse Resp B/P (MAP) Pulse Ox O2 Delivery O2 Flow Rate FiO2 10/21/17 18:00 84 10/21/17 16:00 78 10/21/17 14:31 82 14 149/83 (105) 97 10/21/17 12:01 90 16 136/78 (97) 97 Room Air 10/21/17 10:57 97 Room Air 21 10/21/17 10:16 84 18 157/91 (113) 97 Room Air 10/21/17 10:05 86 18 154/88 (110) 98 10/21/17 08:00 (120) 98 Room Air 10/21/17 07:31 78 16 158/101 (120) 98 Room Air 10/21/17 07:31 81 98 10/21/17 06:22 98.4 83 16 168/100 (122) 98 Physical Exam Physical Exam Narrative GENERAL: No acute distress. SKIN: Focused skin assessment warm/dry. HEAD: Atraumatic. Normocephalic. Positive swelling anterior to ear bilat, he is also tender to palpation. EYES: Pupils equal and round. Extraocular muscles intact bilaterally. No scleral icterus. No injection or drainage. ENT: No nasal bleeding or discharge. Mucous membranes pink and moist. TMs clear bilaterally. NECK: Trachea midline. No JVD. CARDIOVASCULAR: Regular rate and rhythm. No murmur appreciated. RESPIRATORY: No accessory muscle use. Clear to auscultation. Breath sounds equal bilaterally. GASTROINTESTINAL: Abdomen soft, non-tender, nondistended. Hepatic and splenic margins not palpable. MUSCULOSKELETAL: No obvious deformities. No clubbing. No cyanosis. No edema. NEUROLOGICAL: Awake and alert. 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 Power 5 x 5 bilateral upper and lower extremities. PSYCHIATRIC: Appropriate mood and affect; insight and judgment normal. Laboratory Laboratory Tests Test 10/21/17 04:55 White Blood Count 7.6 Red Blood Count 4.90 Hemoglobin 14.0 Hematocrit 42.0 Mean Corpuscular Volume 85.7 Mean Corpuscular Hemoglobin 28.6 Mean Corpuscular Hemoglobin Concent 33.3 Red Cell Distribution Width 13.0 Platelet Count 166 Mean Platelet Volume 9.8 Neutrophils (%) (Auto) 63.9 Lymphocytes (%) (Auto) 28.7 Monocytes (%) (Auto) 5.4 Eosinophils (%) (Auto) 1.3 Basophils (%) (Auto) 0.7 Neutrophils # (Auto) 4.8 Lymphocytes # (Auto) 2.2 Monocytes # (Auto) 0.4 Eosinophils # (Auto) 0.1 Basophils # (Auto) 0.1 CBC Comment DIFF FINAL Differential Comment Prothrombin Time 11.0 Prothromb Time International Ratio 1.1 Activated Partial Thromboplast Time 24.1 Blood Urea Nitrogen 20 Creatinine 1.35 Random Glucose 243 Total Protein 6.6 Albumin 3.4 Calcium Level 8.7 Magnesium Level 1.6 Alkaline Phosphatase 85 Aspartate Amino Transf (AST/SGOT) 8 Alanine Aminotransferase (ALT/SGPT) 18 Total Bilirubin 0.3 Sodium Level 135 Potassium Level 4.2 Chloride Level 102 Carbon Dioxide Level 24.2 Anion Gap 9 Estimat Glomerular Filtration Rate 67 Total Creatine Kinase 163 Creatine Kinase MB 1.4 Troponin I LESS THAN 0.02 Result Diagram: 10/21/1745410/21/17454 Caprini VTE Risk Assessment Caprini VTE Risk Assessment: Mod/High Risk (score >= 2) Caprini Risk Assessment Model Point Value = 1 Point Value = 2 Point Value = 3 Point Value = 5 Age 41-60 Minor surgery BMI > 25 kg/m2 Swollen legs Varicose veins or History of unexplained or recurrent spontaneous Oral contraceptives or hormone replacement Sepsis (< 1 month) Serious lung disease, including pneumonia (< 1 month) Abnormal pulmonary function Acute myocardial infarction Congestive heart failure (< 1 month) History of inflammatory bowel disease Medical patient at bed rest Age 61-74 Arthroscopic surgery Major open surgery (> 45 min) Laparoscopic surgery (> 45 min) Malignancy Confined to bed (> 72 hours) Immobilizing plaster cast Central venous access Age >= 75 History of VTE Family history of VTE Factor V Leiden Prothrombin [id number] Lupus anticoagulant Anticardiolipin antibodies Elevated serum homocysteine Heparin-induced thrombocytopenia Other congenital or acquired thrombophilia Stroke (< 1 month) Elective arthroplasty Hip, pelvis, or leg fracture Acute spinal cord injury (< 1 month) Prophylaxis Regimen Total Risk Factor Score Risk Level Prophylaxis Regimen 0-1 Low Early ambulation 2 Moderate Order ONE of the following: *Sequential Compression Device (SCD) *Heparin 5000 units SQ BID 3-4 Higher Order ONE of the following medications: *Heparin 5000 units SQ TID *Enoxaparin/Lovenox 40 mg SQ daily (WT < 150 kg, CrCl > 30 mL/min) *Enoxaparin/Lovenox 30 mg SQ daily (WT < 150 kg, CrCl > 10-29 mL/min) *Enoxaparin/Lovenox 30 mg SQ BID (WT < 150 kg, CrCl > 30 mL/min) AND/OR *Sequential Compression Device (SCD) 5 or more Highest Order ONE of the following medications: *Heparin 5000 units SQ TID (Preferred with Epidurals) *Enoxaparin/Lovenox 40 mg SQ daily (WT < 150 kg, CrCl > 30 mL/min) *Enoxaparin/Lovenox 30 mg SQ daily (WT < 150 kg, CrCl > 10-29 mL/min) *Enoxaparin/Lovenox 30 mg SQ BID (WT < 150 kg, CrCl > 30 mL/min) AND *Sequential Compression Device (SCD) Assessment and Plan Assessment and Plan 57-year-old male with: Ischemic stroke Right-sided intranuclear facial palsy Headache Diabetes mellitus Hypertension Plan: Admit to ICU. Stroke protocol Stroke workup per neurology. Keep blood pressure below 180 x 100 in view of thrombolysis. Status post thrombolysis. Start antiplatelet therapy when okay with neurology following repeat head CT tomorrow. 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 PT OT eval Sliding scale insulin/home dose Levemir for glycemic control. Hold metformin and glipizide for now. Repeat head CT tomorrow per stroke protocol. We will consult and transfer to hospitalist service in a.m. Critical care will be signing off, please reconsult if needed. Nilesh Pelaez MD Oct 21, 2017 20:14
[2017-10-21] MEDS ORDERED: GLUCAGON 1 MG/ML VIAL IM/SQ PRN (20:15)
[2017-10-21] MEDS ORDERED: DEXTROSE 50% IN WATER 50 ML VIAL(D50) IV PRN (20:15)
[2017-10-21] MEDS: oxyCODONE/ACETAMINOPHEN 10 MG/325 MG TAB PO PRN (20:27)
[2017-10-21] MEDS: ATORVASTATIN 10 MG TAB PO SCH (20:27)
[2017-10-21] MEDS: INSULIN DETEMIR 100 UNITS/ML VIAL SQ SCH (21:00)
[2017-10-21] MEDS: SODIUM CHLORIDE 0.9% FLUSH 10 ML FLUSH IV FLUSH SCH (21:00)
[2017-10-21] MEDS: valACYclovir HCL 500 MG TAB PO SCH (21:09)
[2017-10-21] MEDS: DORZOLAMIDE/TIMOLOL OPTH SOLN 10 ML BTL EACH EYE SCH (21:10)
[2017-10-21] MEDS: LATANOPROST 0.005% OPHT SOLN 2.5 ML BTL EACH EYE SCH (21:10)
[2017-10-21] MEDS: BRIMONIDINE TARTRATE 0.2% OPHT SOLN 5 ML BTL EACH EYE SCH (21:10)
[2017-10-22] VITALS (7 sets, daily range): BP systolic 125–140; BP diastolic 77–89; PULSE 63–85; RESP 14–20; TEMP 97.6–98.4; O2SAT 98–100
[2017-10-22] MEDS: MORPHINE SULFATE 4 MG/ML INJ IV PRN (00:19)
[2017-10-22] MEDS: SODIUM CHLOR 0.9% 1000 ML INJ 1,000 ML IV SCH ×2 (00:19→16:36)
[2017-10-22] MEDS: ONDANSETRON ODT 4 MG TAB PO PRN ×2 (03:11→23:00)
[2017-10-22] MEDS: INSULIN ASPART SUPPLEMENTAL SCALE SQ SCH ×4 (08:00→19:54)
[2017-10-22] MEDS: valACYclovir HCL 500 MG TAB PO SCH ×2 (08:37→19:54)
[2017-10-22] MEDS: BRIMONIDINE TARTRATE 0.2% OPHT SOLN 5 ML BTL EACH EYE SCH ×2 (09:00→19:55)
[2017-10-22] MEDS: DORZOLAMIDE/TIMOLOL OPTH SOLN 10 ML BTL EACH EYE SCH ×2 (09:00→19:55)
[2017-10-22] MEDS ORDERED: predniSONE 50 MG TAB PO SCH (09:00)
[2017-10-22] MEDS: SODIUM CHLORIDE 0.9% FLUSH 10 ML FLUSH IV FLUSH SCH ×2 (09:00→19:55)
--- NOTE | 2017-10-22 11:11 | RADRPT ---
EXAM DATE: 10/22/2017 11:08 AM EDT AGE/SEX: 57 years / Male INDICATIONS: Follow up for stroke. 24 hours post TPA administration. CLINICAL DATA: This is the patient's subsequent encounter. Patient reports that signs and symptoms h ave been present for 2 days and indicates a pain score of 0/10. MEDICAL/SURGICAL HISTORY: Stroke. Hypertension. Diabetes. None. RADIATION DOSE: 48.29 CTDI (mGy) COMPARISON: [facility] – [place]/O CONTRAST, 10/21/2017. . TECHNIQUE: CT of the head without contrast. Using automated exposure control and adjustment of the mA and/or kV according to patient size, radiation dose was kept as low as reasonably achievable to ob tain optimal diagnostic quality images. DICOM format image data is available electronically for revi ew and comparison. FINDINGS: Cerebrum: The ventricles are normal for age. No evidence of midline shift, mass lesion, hemorrhage or acute infarction. No extraaxial fluid collections are seen. Posterior Fossa: The cerebellum and brainstem are intact. The 4th ventricle is midline. The cerebe llopontine angle is unremarkable. Extracranial: The visualized portion of the orbits is intact. Skull: The calvaria is intact. No evidence of skull fracture. CONCLUSION: 1. Negative CT Head non contrast. No intracranial hemorrhage identified following TPA administration . Stable compared to previous examination dated 10/21/2017. Electronically signed by: Wilman Garcia MD 10/22/2017 11:10 AM EDT
[2017-10-22] MEDS: INSULIN DETEMIR 100 UNITS/ML VIAL SQ SCH ×2 (11:30→19:54)
--- NOTE | 2017-10-22 13:32 | RADRPT ---
EXAM DATE: 10/21/2017 11:04 AM EDT AGE/SEX: 57 years / Male INDICATIONS: Stroke alert, slurred speech, right facial droop. CLINICAL DATA: This is the patient's initial encounter. Patient reports that signs and symptoms have been present for 1 day and indicates a pain score of 0/10. MEDICAL/SURGICAL HISTORY: Hypertension. Diabetes. None. RADIATION DOSE: 10.54 CTDI (mGy) ; Combined studies COMPARISON: No prior exams available for comparison. TECHNIQUE: Volumetric scanning was performed using a multirow detector CT scanner during bolus infus ion of 50 ml Visipaque 320 (iodixanol) nonionic water-soluble contrast as a cumulative dose for mult iple exams. The data was postprocessed with a variety of visualization algorithms including full-vo lume maximum intensity projection, multiplanar sliding thin-slab reformation, curved-planar reformati on, and surface-rendering techniques. Using automated exposure control and adjustment of the mA and/ or kV according to patient size, radiation dose was kept as low as reasonably achievable to obtain op timal diagnostic quality images. DICOM format image data is available electronically for review and comparison. FINDINGS: Aortic Arch: There is a three-vessel origin of the great vessels from the aorta. No evidence of ost ial narrowing Right Carotid: The common carotid artery is intact. The carotid bulb has a normal configuration wit hout ulceration or narrowing. The internal carotid artery lumen is smooth without stenosis. The ext ernal carotid artery is intact. Left Carotid: The common carotid artery is intact. The carotid bulb has a normal configuration with out ulceration or narrowing. The internal carotid artery lumen is smooth without stenosis. The exte rnal carotid artery is intact. Vertebrals: The vertebral arteries have a symmetric diameter. No stenotic lesions are seen. Elevated flow velocities and ICA/CCA ratios have been found to correlate with increased degrees of ve ssel stenosis, calculated as percentage of diameter relative to a normal segment of distal ICA/CCA. CONCLUSION: 1. Normal carotid arteries. 2. Vertebral arteries are unremarkable. Electronically signed by: Kane Brooks MD 10/22/2017 1:31 PM EDT
--- NOTE | 2017-10-22 15:52 | ECHRPT ---
Indication: cva/tia CONCLUSIONS The left ventricular systolic function is normal with an estimated ejection fraction in the range of 55-60%. Mild concentric left ventricular hypertrophy. Normal left ventricular size. Calcification of the anterior mitral valve leaflet. Trace mitral valve regurgitation. There is trace tricuspid valve regurgitation. BP: / HR: Rhythm: Sinus MEASUREMENTS (Male / Female) Normal Values Technical Quality:Fair 2D ECHO LV Diastolic Diameter PLAX 4.5 cm 4.2 - 5.9 / 3.9 - 5.3 cm LV Systolic Diameter PLAX 3.2 cm IVS Diastolic Thickness 1.1 cm 0.6 - 1.0 / 0.6 - 0.9 cm LVPW Diastolic Thickness 1.1 cm 0.6 - 1.0 / 0.6 - 0.9 cm LV Relative Wall Thickness 0.5 RV Internal Dim ED PLAX 3.4 cm LVOT Diameter 2.0 cm LA Systolic Diameter LX 3.3 cm 3.0 - 4.0 / 2.7 - 3.8 cm M-MODE Aortic Root Diameter MM 2.9 cm LA Systolic Diameter MM 3.4 cm LA Ao Ratio MM 1.2 AV Cusp Separation MM 2.0 cm DOPPLER AV Peak Velocity 167.0 cm/s AV Peak Gradient 11.2 mmHg LVOT Peak Velocity 113.0 cm/s LVOT Peak Gradient 5.1 mmHg AV Area Cont Eq pk 2.1 cm MV Area PHT 3.7 cm Mitral E Point Velocity 70.3 cm/s Mitral A Point Velocity 48.3 cm/s Mitral E to A Ratio 1.5 LV E' Lateral Velocity 9.9 cm/s Mitral E to LV E' Lateral Ratio 7.1 LV E' Septal Velocity 9.2 cm/s Mitral E to LV E' Septal Ratio 7.7 TR Peak Velocity 219.0 cm/s TR Peak Gradient 19.2 mmHg Right Atrial Pressure 10.0 mmHg Pulmonary Artery Systolic Pressu 29.2 mmHg Right Ventricular Systolic Press 29.2 mmHg FINDINGS LEFT VENTRICLE The left ventricular systolic function is normal with an estimated ejection fraction in the range of 55-60%. Mild concentric left ventricular hypertrophy. Normal left ventricular size. RIGHT VENTRICLE Normal right ventricular size and systolic function. LEFT ATRIUM The left atrial size is normal. RIGHT ATRIUM The right atrial size is normal. ATRIAL SEPTUM Normal atrial septal thickness without atrial level shunting by limited color doppler interrogation. AORTA The aortic root and proximal ascending aorta are normal in size on limited imaging. MITRAL VALVE Calcification of the anterior mitral valve leaflet. Trace mitral valve regurgitation. AORTIC VALVE Trileaflet aortic valve. No aortic valve stenosis or regurgitation. TRICUSPID VALVE Structurally normal tricuspid valve. There is trace tricuspid valve regurgitation. PULMONARY VALVE No pulmonary valve regurgitation or stenosis. VESSELS The inferior vena cava is normal in size. PERICARDIUM No pericardial effusion. Norbert Magana MD (Electronically Signed) Final Date:22 October 2017 15:51
--- NOTE | 2017-10-22 17:18 | HHI.PR ---
Subjective Remarks This is a 57-year-old male patient with past medical history which includes diabetes mellitus and hypertension. Patient presented to the emergency department (10/21/17) complaining of headache and right ear pain that started 4 AM. New onset. Pain is described as being 10 out of 10, constant, moves to right ear, on the right side of his head, no alleviating or aggravating factors , he took pain medication this morning with no relief of symptoms. States that his neck is somewhat sore on the right side, also states that the light bothers his headache just a little bit. Following arrival in the ER patient developed slurred speech and right-sided weakness. At 9:30, he developed acute onset of right facial droop, slurred speech and right leg weakness. Difficulty raising the leg above the bed. He denies any prior history of stroke or TIA. Stroke alert was called patient underwent CTA and head CT which was negative. Dr. Javier from neurology evaluated patient and he was administered TPA following which patient was accepted for admission by critical care medicine service. Following administration of TPA right-sided weakness resolved however right facial weakness persisted. Patient initially admitted to ICU S/P TPA and has been doing well, although patient continues to have right facial droop. We have been consult due to assume care. Patient Objective Vitals Vital Signs Date Time Temp Pulse Resp B/P (MAP) Pulse Ox O2 Delivery O2 Flow Rate FiO2 10/22/17 16:00 97.6 73 16 140/84 (102) 98 10/22/17 16:00 73 10/22/17 12:00 85 10/22/17 12:00 97.9 85 20 133/81 (98) 99 10/22/17 08:00 97.7 68 14 125/77 (93) 100 10/22/17 08:00 74 10/22/17 07:00 100 Room Air 10/22/17 04:00 63 10/22/17 00:00 79 10/21/17 20:00 98 Room Air 10/21/17 20:00 71 10/21/17 19:45 15 10/21/17 19:28 98 21 10/21/17 18:00 84 Result Diagram: 10/21/17 0455 10/21/17 0455 Other Results Laboratory Tests Test 10/21/17 04:55 White Blood Count 7.6 TH/MM3 Red Blood Count 4.90 MIL/MM3 Hemoglobin 14.0 GM/DL Hematocrit 42.0 % Mean Corpuscular Volume 85.7 FL Mean Corpuscular Hemoglobin 28.6 PG Mean Corpuscular Hemoglobin Concent 33.3 % Red Cell Distribution Width 13.0 % Platelet Count 166 TH/MM3 Mean Platelet Volume 9.8 FL Neutrophils (%) (Auto) 63.9 % Lymphocytes (%) (Auto) 28.7 % Monocytes (%) (Auto) 5.4 % Eosinophils (%) (Auto) 1.3 % Basophils (%) (Auto) 0.7 % Neutrophils # (Auto) 4.8 TH/MM3 Lymphocytes # (Auto) 2.2 TH/MM3 Monocytes # (Auto) 0.4 TH/MM3 Eosinophils # (Auto) 0.1 TH/MM3 Basophils # (Auto) 0.1 TH/MM3 CBC Comment DIFF FINAL Differential Comment Prothrombin Time 11.0 SEC Prothromb Time International Ratio 1.1 RATIO Activated Partial Thromboplast Time 24.1 SEC Blood Urea Nitrogen 20 MG/DL Creatinine 1.35 MG/DL Random Glucose 243 MG/DL Total Protein 6.6 GM/DL Albumin 3.4 GM/DL Calcium Level 8.7 MG/DL Magnesium Level 1.6 MG/DL Alkaline Phosphatase 85 U/L Aspartate Amino Transf (AST/SGOT) 8 U/L Alanine Aminotransferase (ALT/SGPT) 18 U/L Total Bilirubin 0.3 MG/DL Sodium Level 135 MEQ/L Potassium Level 4.2 MEQ/L Chloride Level 102 MEQ/L Carbon Dioxide Level 24.2 MEQ/L Anion Gap 9 MEQ/L Estimat Glomerular Filtration Rate 67 ML/MIN Total Creatine Kinase 163 U/L Creatine Kinase MB 1.4 NG/ML Troponin I LESS THAN 0.02 NG/ML Imaging Last Impressions Head CT 10/22/17 1130 Signed Impressions: CONCLUSION: 1. Negative CT Head non contrast. No intracranial hemorrhage identified follow ing TPA administration. Stable compared to previous examination dated 10/21/2017 . Neck CTA 10/21/17 0948 Signed Impressions: CONCLUSION: 1. Normal carotid arteries. 2. Vertebral arteries are unremarkable. Head CTA 10/21/17 0948 Signed Impressions: CONCLUSION: Negative CTA of the head. Maxillofacial CT 10/21/17 0737 Signed Impressions: CONCLUSION: 1. The orbits appear normal. 2. 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 3. Mild asymmetry to the tonsils with the right side appearing slightly more p rominent. This area can be directly inspected. Chest X-Ray 10/21/17 0737 Signed Impressions: CONCLUSION: No acute cardiopulmonary process. Brain MRI 10/21/17 0000 Signed Impressions: CONCLUSION: Negative brain MRI examination. Objective Remarks GENERAL: This is a well-nourished, well-developed patient, in no apparent distress. HEAD: Mild edema noted bilaterally anterior to ears, area also tender to palpation CARDIOVASCULAR: Regular rate and rhythm RESPIRATORY: Clear to auscultation. Breath sounds equal bilaterally GASTROINTESTINAL: Abdomen soft, non-tender, nondistended. Normal active bowel sounds MUSCULOSKELETAL: Extremities without clubbing, cyanosis, or edema. NEURO: Awake and alert. Moves all ext x4 equally. Right-sided palsy. A/P Problem List: (1) Stroke-like symptoms ICD Codes: R29.90 - Unspecified symptoms and signs involving the nervous system Plan: Ischemic stroke Right-sided intranuclear facial palsy Headache Patient admit to ICU s/p TPA Goal to keep blood pressure below 180/100 in view of thrombolysis. Status post thrombolysis. Start antiplatelet therapy when okay with neurology Initial CTA head 10/21/2017 conclusion negative noncontrast head CT. No abnormality is identified to explain the clinical symptoms repeat head CT 10/22/17: negative CT head non contrast. No intracranial hemorrhage identified following TPA administration. Stable compared to previous examination dated 10/21/17 MRI brain conclusion negative MRI examination Neck CTA reviewed and reveals normal carotid arteries. Vertebral arteries are unremarkable. Head CTA conclusion negative CT of the head Maxillofacial CT reviewed conclusion of the orbits appear normal. 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 Mild asymmetry to the tonsils with the right side appearing slightly more prominent. This area can be directly inspected 2 D echocardiogram reviewed and reveals: The left ventricular systolic function is normal with an estimated ejection fraction in the range of 55-60%. Mild concentric left ventricular hypertrophy. Normal left ventricular size. Calcification of the anterior mitral valve leaflet. Trace mitral valve regurgitation. There is trace tricuspid valve regurgitation. Lipitor 10 mg p.o. 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 every 12 and prednisone 50 mg p.o. daily for concern regarding [place] Bentley syndrome by neurology. (3) DM (diabetes mellitus) ICD Codes: E11.9 - Type 2 diabetes mellitus without complications Status: Acute Plan: Levemir 30 units subcu with breakfast and 10 units subcu nightly accu checks ACHS with SSI diabetic diet (4) HTN (hypertension) ICD Codes: I10 - Essential (primary) hypertension Status: Acute Plan: Patient S/p TPA for stroke like symptoms goal SBP below 180/100 Assessment and Plan Patient examined. Assessment and plan formulated with Gayathri Marr PA-C. I agree with the above. Case d/w Dr. Javier, Neurology. Pt received tPA for suspected acute CVA. Neuroimaging negative. Pt did NOT develop vesicular rash c/w shingles. Retrospectively Alejo's Palsy seems most likely and/or TIA Anticipate d/c to home 10/23 on Valtrex and tapering prednisone. ASA 325mg daily. Gayathri Marr Oct 22, 2017 17:18 Michael Bourne DO Oct 22, 2017 23:30
[2017-10-22] MEDS: ATORVASTATIN 10 MG TAB PO SCH (19:54)
[2017-10-22] MEDS: LATANOPROST 0.005% OPHT SOLN 2.5 ML BTL EACH EYE SCH (19:55)
--- NOTE | 2017-10-22 20:20 | HHI.PR ---
Review/Management Diagnosis stroke--resolved after TPA Right Norris Palsey. Doubt Bulpitt Bentley since ear pain resolved and is no vesicular rash Plan ASA 325 mg daily Continue valtrex 7 days Will reduce prednisone and then slowly taper it ----40mg daily for 2 days , then 30 mg daily for two days, then 20 mg daily for two days, then 10 mg daily for two days then stop Ok from neuro standpoint to dc home tomorrow if stable with follow up with me in 3 weeks Provide artificial tears to right eye to prevent corneal dessication Diagnosis/Plan: Subjective Subjective Comments No acute events reported He feels his speech is improved. He feels LE strength is normal. He was able to transfer to chair Active Medications Current Medications Medications (Trade) Dose Ordered Sig/Ana Cristina Route Start Time Stop Time Status Last Admin (Valtrex) 1,000 mg Q12HR PO 10/21/17 21:00 10/22/17 19:54 (Deltasone) 50 mg DAILY PO 10/22/17 09:00 10/22/17 08:37 (NS Flush) 2 ml BID IV FLUSH 10/21/17 21:00 10/22/17 19:55 (NS Flush) 2 ml UNSCH PRN IV FLUSH 10/21/17 11:45 Sodium Chloride 1,000 ml @ 70 mls/hr [id number] IV 10/21/17 12:00 10/22/17 00:19 (Trandate Inj) 10 mg Q2H PRN IV PUSH 10/21/17 11:45 (Lipitor) 10 mg HS PO 10/21/17 21:00 10/22/17 19:54 (Percocet 10-325 Mg) 1 tab Q6H PRN PO 10/21/17 13:30 10/21/17 20:27 (Morphine Inj) 4 mg Q6H PRN IV 10/21/17 18:45 10/22/17 00:19 (Alphagan 0.2% Opth Soln) 1 drop BID EACH EYE 10/21/17 21:00 10/22/17 19:55 (Cosopt 2-0.5% Opth Soln) 1 drop BID EACH EYE 10/21/17 21:00 10/22/17 19:55 (Levemir Inj) 10 units HS SQ 10/21/17 21:00 10/22/17 19:54 (Levemir Inj) 30 units AC BREAKFAST SQ 10/22/17 07:00 10/22/17 11:30 (Xalatan 0.005% Opth Soln) 1 drop HS EACH EYE 10/21/17 21:00 10/22/17 19:55 (NovoLOG SUPPLEMENTAL SCALE) 1 ACHS SQ 10/21/17 21:00 10/22/17 19:54 (D50w (Vial) Inj) 25 ml UNSCH PRN IV 10/21/17 20:15 (Glucagon Inj) 1 mg UNSCH PRN IM/SQ 10/21/17 20:15 (Zofran Odt) 4 mg Q6H PRN PO 10/22/17 03:00 10/22/17 03:11 (Prinivil) 20 mg DAILY PO 10/23/17 09:00 Allergies Allergies Coded Allergies No Known Allergies (Verified Allergy, Unknown, 09/26/17) Exam I&O / VS 10/22/17 10/22/17 10/23/17 15:00 23:00 07:00 Intake Total 1000 ml Balance 1000 ml Intake Oral 1000 ml # Voids 6 Vital Signs Date Time Temp Pulse Resp B/P (MAP) Pulse Ox O2 Delivery O2 Flow Rate FiO2 10/22/17 16:00 97.6 73 16 140/84 (102) 98 10/22/17 16:00 73 10/22/17 12:00 85 10/22/17 12:00 97.9 85 20 133/81 (98) 99 10/22/17 08:00 97.7 68 14 125/77 (93) 100 10/22/17 08:00 74 10/22/17 07:00 100 Room Air 10/22/17 04:00 63 10/22/17 00:00 79 Exam Comments alert, speech dysarthric CN --right lower motor neuron CN 7 palsey. MOTOR 5/5 BUE and BLE Objective Radiology Results MRI brain normal CTA neck--no significant stenosis CTA brain--no significant stenosis CT brain 24 hours post TPA--negative for hemorrhage Atilio Javier MD PhD Oct 22, 2017 20:20
[2017-10-22 21:20] LABS: FREE T4 0.99 NG/DL (0.76-1.46)
[2017-10-22] MEDS: oxyCODONE/ACETAMINOPHEN 10 MG/325 MG TAB PO PRN (22:41)
[2017-10-23] VITALS: BP 156/98; PULSE 61; PULSE 75; RESP 21; TEMP 98.2; O2SAT 98
[2017-10-23] MEDS: SODIUM CHLOR 0.9% 1000 ML INJ 1,000 ML IV SCH (03:45)
[2017-10-23 04:00] VITALS: BP 132/73; PULSE 70; RESP 17; TEMP 98.4; O2SAT 99
[2017-10-23 05:17] LABS: AUTOMATED NEUTROPHIL # 4.2 TH/MM3 (1.8-7.7); BASOPHIL # 0.1 TH/MM3 (0-0.2); BASOPHIL % 0.6 % (0.0-2.0); EOSINOPHIL # 0.2 TH/MM3 (0-0.4); EOSINOPHIL % 2.1 % (0.0-4.0); HEMATOCRIT 42.1 % (39.0-51.0); HEMOGLOBIN 14.1 GM/DL (13.0-17.0); LYMPH % 43.1 % (9.0-44.0); LYMPHOCYTE # 3.9 TH/MM3 (1.0-4.8); MEAN CELL VOLUME 85.2 FL (80.0-100.0); MEAN CORPUSCULAR HEMOGLOBIN 28.5 PG (27.0-34.0); MEAN CORPUSCULAR HGB CONC 33.5 % (32.0-36.0); MEAN PLATELET VOLUME 9.4 FL (7.0-11.0); MONO % 7.7 % (0.0-8.0); MONOCYTE # 0.7 TH/MM3 (0-0.9); NEUT % 46.5 % (16.0-70.0); PLATELET COUNT 160 TH/MM3 (150-450); RED BLOOD COUNT 4.94 MIL/MM3 (4.50-5.90); RED CELL DISTRIBUTION WIDTH 13.1 % (11.6-17.2)
[2017-10-23 05:46] LABS: BICARBONATE 25.3 MEQ/L (21.0-32.0); BLOOD UREA NITROGEN 22 MG/DL (7-18); CALCIUM 7.8 MG/DL (8.5-10.1); CHLORIDE 105 MEQ/L (98-107); CREATININE 1.27 MG/DL (0.60-1.30); GLOMERULAR FILTRATION RATE 71 ML/MIN (>89); GLUCOSE,RANDOM 180 MG/DL (74-106); SODIUM (NA) 139 MEQ/L (136-145)
[2017-10-23 05:49] LABS: CHOLESTEROL 130 MG/DL (120-200); CHOLESTEROL/ HDL RATIO 3.61 RATIO; LDL CHOLESTEROL 66 MG/DL (0-99); TRIGLYCERIDES 141 MG/DL (42-150)
[2017-10-23] MEDS: INSULIN DETEMIR 100 UNITS/ML VIAL SQ SCH (07:00)
[2017-10-23 08:00] VITALS: BP 154/92; PULSE 74; RESP 19; TEMP 98.3; O2SAT 100
[2017-10-23] MEDS: INSULIN ASPART SUPPLEMENTAL SCALE SQ SCH ×2 (08:00→11:49)
[2017-10-23] MEDS: DORZOLAMIDE/TIMOLOL OPTH SOLN 10 ML BTL EACH EYE SCH (08:40)
[2017-10-23] MEDS: valACYclovir HCL 500 MG TAB PO SCH (08:40)
[2017-10-23] MEDS: SODIUM CHLORIDE 0.9% FLUSH 10 ML FLUSH IV FLUSH SCH (08:40)
[2017-10-23] MEDS: LATANOPROST 0.005% OPHT SOLN 2.5 ML BTL EACH EYE SCH (08:41)
[2017-10-23] MEDS: BRIMONIDINE TARTRATE 0.2% OPHT SOLN 5 ML BTL EACH EYE SCH (08:41)
[2017-10-23] MEDS ORDERED: PRED10 PO (08:45)
[2017-10-23] MEDS ORDERED: ASA325 PO (08:45)
[2017-10-23] MEDS ORDERED: cholesterol med (08:46)
[2017-10-23] MEDS ORDERED: predniSONE 20 MG TAB PO SCH (09:00)
[2017-10-23] MEDS ORDERED: ASPIRIN 325 MG TAB PO SCH (09:00)
[2017-10-23] MEDS ORDERED: LISINOPRIL 20 MG TAB PO SCH (09:00)
[2017-10-23 09:40] VITALS: O2SAT 97
[2017-10-23] MEDS ORDERED: VALT500T PO (11:38)
[2017-10-23 12:00] VITALS: BP 136/74; PULSE 77; RESP 17; TEMP 97.8; O2SAT 96
[2017-10-23 12:42] LABS: HEMOGLOBIN A1C 13.6 % (4.3-6.0)
--- NOTE | 2017-10-23 12:53 | HHI.DCPOC ---
Discharge Care Plan Diagnosis: (1) Facial paralysis (2) Stroke-like symptoms (3) DM (diabetes mellitus) Goals to Promote Your Health * To prevent worsening of your condition and complications * To maintain your health at the optimal level Directions to Meet Your Goals Take your medications as prescribed Follow your dietary instruction Follow activity as directed Keep your appointments as scheduled Take your immunizations and boosters as scheduled If your symptoms worsen call your PCP, if no PCP go to Urgent Care Center or Emergency Room Smoking is Dangerous to Your Health. Avoid second hand smoke Call the 24-hour hour crisis hotline for domestic abuse at Gayathri Marr Oct 23, 2017 12:53 Michael Bourne DO Oct 23, 2017 13:08
--- NOTE | 2017-10-23 12:58 | HHI.DS ---
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 Javier, Neurology Dr. Pelaez, ICU Procedures TPA administered 10/21/17 Brief History Patient presents to the emergency department complaining of headache and right ear pain that started 4 AM this morning. New onset. Pain is described as being 10 out of 10, constant, moves to right ear, on the right side of his head , no alleviating or aggravating factors, he took pain medication this morning with no relief of symptoms. Dates that his neck is somewhat sore on the right side, also states that the light bothers his headache just a little bit. He denies fever, chills, nausea, vomiting, numbness, tingling, vision change, slurred speech, chest pain, shortness of breath, rash, difficulty ambulating. Following arrival in the ER patient developed slurred speech and right-sided weakness. Stroke alert was called patient underwent CTA and head CT which was negative. Dr. Javier from neurology evaluated patient and he was administered TPA following which patient was accepted for admission by critical care medicine service. Following administration of TPA right-sided weakness resolved however right facial weakness persisted. When I evaluated the patient in the ICU he was resting comfortably though complaining of significant pain involving his right ear and headache. CBC/BMP: 10/23/17 0502 10/23/17 0502 Significant Findings Laboratory Tests Test 10/21/17 04:55 10/22/17 20:03 10/23/17 05:02 Activated Partial Thromboplast Time 24.1 SEC (24.3-30.1) Blood Urea Nitrogen 20 MG/DL (7-18) 22 MG/DL (7-18) Creatinine 1.35 MG/DL (0.60-1.30) Random Glucose 243 MG/DL (74-106) 180 MG/DL (74-106) Aspartate Amino Transf (AST/SGOT) 8 U/L (15-37) Sodium Level 135 MEQ/L (136-145) Estimat Glomerular Filtration Rate 67 ML/MIN (>89) 71 ML/MIN (>89) Troponin I LESS THAN 0.02 NG/ML Folate 18.0 NG/ML (3.1-17.5) Thyroid Stimulating Hormone 3rd Gen 0.218 uIU/ML (0.358-3.740) Calcium Level 7.8 MG/DL (8.5-10.1) Hemoglobin A1c 13.6 % (4.3-6.0) HDL Cholesterol 36.0 MG/DL (40.0-60.0) Imaging Last Impressions Head CT 10/22/17 1130 Signed Impressions: CONCLUSION: 1. Negative CT Head non contrast. No intracranial hemorrhage identified follow ing TPA administration. Stable compared to previous examination dated 10/21/2017 . Neck CTA 10/21/17 0948 Signed Impressions: CONCLUSION: 1. Normal carotid arteries. 2. Vertebral arteries are unremarkable. Head CTA 10/21/17 0948 Signed Impressions: CONCLUSION: Negative CTA of the head. Maxillofacial CT 10/21/17 0737 Signed Impressions: CONCLUSION: 1. The orbits appear normal. 2. 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 3. Mild asymmetry to the tonsils with the right side appearing slightly more p rominent. This area can be directly inspected. Chest X-Ray 10/21/17 0737 Signed Impressions: CONCLUSION: No acute cardiopulmonary process. Brain MRI 10/21/17 0000 Signed Impressions: CONCLUSION: Negative brain MRI examination. PE at Discharge GENERAL: This is a well-nourished, well-developed patient, in no apparent distress. HEAD: Mild edema noted bilaterally anterior to ears, area also tender to palpation CARDIOVASCULAR: Regular rate and rhythm RESPIRATORY: Clear to auscultation. Breath sounds equal bilaterally GASTROINTESTINAL: Abdomen soft, non-tender, nondistended. Normal active bowel sounds MUSCULOSKELETAL: Extremities without clubbing, cyanosis, or edema. NEURO: Awake and alert. Moves all ext x4 equally. Right-sided palsy. Hospital Course Stroke like symptoms/ Ischemic stroke Right-sided intranuclear facial palsy Headache Patient admit to ICU s/p TPA Goal to keep blood pressure below 180/100 in view of thrombolysis. Status post thrombolysis. Start antiplatelet therapy when okay with neurology Initial CTA head 10/21/2017 conclusion negative noncontrast head CT. No abnormality is identified to explain the clinical symptoms repeat head CT 10/22/17: negative CT head non contrast. No intracranial hemorrhage identified following TPA administration. Stable compared to previous examination dated 10/21/17 MRI brain conclusion negative MRI examination Neck CTA reviewed and reveals normal carotid arteries. Vertebral arteries are unremarkable. Head CTA conclusion negative CT of the head Maxillofacial CT reviewed conclusion of the orbits appear normal. 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 Mild asymmetry to the tonsils with the right side appearing slightly more prominent. This area can be directly inspected 2 D echocardiogram reviewed and reveals: The left ventricular systolic function is normal with an estimated ejection fraction in the range of 55-60%. Mild concentric left ventricular hypertrophy. Normal left ventricular size. Calcification of the anterior mitral valve leaflet. Trace mitral valve regurgitation. There is trace tricuspid valve regurgitation. Lipitor 10 mg p.o. 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 every 12 and prednisone 50 mg p.o. daily for concern regarding Dean Bentley syndrome by neurology. Will DC on valacyclovir and prednisone taper Patient will need to follow up with PCP and neurology after DC DM (diabetes mellitus) Levemir 30 units subcu with breakfast and 10 units subcu nightly accu checks ACHS with SSI diabetic diet HTN (hypertension) Patient S/p TPA for stroke like symptoms goal SBP below 180/100 resume home lisinopril Pt Condition on Discharge: Stable Discharge Disposition: Discharge Home Discharge Instructions DIET: Follow Instructions for: Heart Healthy Diet, Diabetic Diet Activities you can perform: Regular-No Restrictions Follow up Referrals: Neurology - 3 Weeks with Atilio Javier MD PhD PCP Follow-up - 1 Week Physical Medicine & Rehab - 2 Months with Dariana Massey MD New Medications: Prednisone (Prednisone) 10 Mg Tab 10 MG PO DIRECTED for steroid taper, #20 TAB 0 Refills take 40mg daily for 2 days , then 30 mg daily for two days, then 20 mg daily for two days, then 10 mg daily for two days then stop Aspirin (Px Aspirin) 325 Mg Tab 325 MG PO DAILY for Blood Clot Prevention, #30 TAB 0 Refills Valacyclovir (Valtrex) 500 Mg Tab 1000 MG PO Q12HR for antiviral for 7 Days, TAB 0 Refills Continued Medications: Brimonidine Opth Drops (Brimonidine Opth Drops) 0.2% Soln 1 DROP EACH EYE BID for Intraocular pressure, #3 BOTTLE 3 Refills Dorzolamide-Timolol Pf Opth Drops (Cosopt Pf Opth Drops) 22.3-6.8 mg/ml Soln 1 DROP EACH EYE BID for Glaucoma, #3 BOTTLE 3 Refills Glipizide (Glipizide) 5 Mg Tab 5 MG PO DAILY for Blood Sugar Management, #90 TAB 0 Refills Take 30 minutes before a meal Insulin Detemir Inj (Levemir Inj) 1,000 unit/ 10 ML Vial 30 UNITS SQ AC BREAKFAST for Blood Sugar Management, VIAL 0 Refills Do not mix with any other Insulin. Insulin Detemir Inj (Levemir Inj) 1,000 unit/ 10 ML Vial 10 UNITS SQ HS for Blood Sugar Management, VIAL 0 Refills Do not mix with any other Insulin. Latanoprost Opth Drops (Latanoprost Opth Drops) 0.005% Drops 1 DROP EACH EYE HS for Glaucoma, #3 BOTTLE 3 Refills Refrigerate until opened. Lisinopril (Lisinopril) 20 Mg Tab 20 MG PO DAILY, #90 TAB 0 Refills Metformin (Metformin) 500 Mg Tab 1000 MG PO BIDPC for Blood Sugar Management, #360 TAB 0 Refills [cholesterol med] () Additional Information Patient examined. Assessment and plan formulated with Gayathri Marr PA-C. I agree with the above. Gayathri Marr Oct 23, 2017 12:58 Michael Bourne DO Oct 23, 2017 13:08
[2017-10-23] MEDS ORDERED: PRED20 PO (13:21)
--- NOTE | 2017-10-23 18:06 | PD.CONS ---
[facility] Service Rehabilitation Medicine Consult Requested By Atilio Javier MD Reason for Consult Comprehensive rehabilitation evaluation. Primary Care Physician LIGIA Butterfield History of Present Illness Azar Lopez is a 57 year old right hand dominant male admitted to [facility] 10/21/17 with pain in the right ear, headache, slurred speech and right lower extremity weakness. Head CT was negative. He received IV TPA. Subsequent brain MRI was negative. CT of the head and neck were negative. He is noted to have stroke with symptoms resolved after TPA and right Alejo's palsy per neurology. Patient is reporting difficulty with chewing and pocketing in the right cheek. His speech is slurred although improving. He denies any weakness or numbness and tingling in the extremities. There is no change in bowel or bladder function. Review of Systems Constitutional: DENIES: Fatigue Eyes: DENIES: Diplopia, Vision loss Ears, nose, mouth, throat: DENIES: Throat pain Respiratory: DENIES: Shortness of breath Cardiovascular: DENIES: Chest pain Gastrointestinal: DENIES: Abdominal pain Genitourinary: DENIES: Urinary incontinence Integumentary: DENIES: Pruritus Hematologic/lymphatic: DENIES: Bruising Neurologic: COMPLAINS OF: Speech Problems, DENIES: Headache, Localized weakness , Paresthesias, Poor Balance Psychiatric: DENIES: Confusion Past Family Social History Allergies: Coded Allergies: No Known Allergies (Verified Allergy, Unknown, 09/26/17) Past Medical History Diabetes mellitus Hypertension Past Surgical History Left hip surgery Family History Noncontributory to the [facility] Social History Lives in [place], [place]. Independent with mobility and ADLs prior to admission. No tobacco history. Occasional alcohol use Exam I&O / VS Vital Signs Date Time Temp Pulse Resp B/P (MAP) Pulse Ox O2 Delivery O2 Flow Rate FiO2 10/23/17 12:00 97.8 77 17 136/74 (94) 96 10/23/17 12:00 77 10/23/17 09:40 97 21.00 10/23/17 08:00 98.3 74 19 154/92 (112) 100 10/23/17 08:00 74 10/23/17 07:00 96 Room Air 10/23/17 04:00 98.4 70 17 132/73 (92) 99 10/23/17 04:00 70 10/23/17 00:00 98.2 75 21 156/98 (117) 98 10/23/17 00:00 61 10/22/17 20:30 98 21 10/22/17 20:00 98.4 72 14 140/89 (106) 98 10/22/17 20:00 98 Room Air 10/22/17 20:00 72 General: No acute distress Respiratory: Lungs CTA, Non-labored respirations, BS equal Gastrointestinal: Positive Bowel Sounds, Non-Distended, Non-Tender Cardiovascular: Normal rate, No edema, Regular Rhythm Skin: No rash Musculoskeletal: No calf tenderness Psychiatric: Cooperative, Appropriate mood & affect Orientation: oriented to Self, oriented to Place, oriented to Time, oriented to Situation Neurologic: Pupils (PERRLA), EOM (Intact), Facial Symmetry (Right facial droop) , Speech (Flaccid dysarthria) Motor: Right Upper Extremity (5/5), Left Upper Extremity (5/5), Right Lower Extremity (5/5), Left Lower Extremity (5/5) Sensory Intact to light touch in both upper and lower extremities DTRs: Normal Babinski: Negative Clonus: Negative Assessment and Plan Diagnosis: (1) Facial paralysis ICD Codes: G51.0 - Alejo's palsy (2) Stroke-like symptoms ICD Codes: R29.90 - Unspecified symptoms and signs involving the nervous system Assessment 1. 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 Status post TPA for strokelike symptoms 3. Diabetes mellitus 4. Hypertension Plan 1. Physical therapy is mobilizing and now standby assist for transfers and gait 30 feet with no device. Continue to mobilize as tolerated 2. Speech therapy for dysarthria and oral phase dysphasia treatment. Patient will benefit from ongoing outpatient speech therapy including vital stem 3. Will follow as needed in the outpatient clinic Thank you for this consult Dariana Massey MD Oct 23, 2017 18:06
== END 2017-10-23 14:16 | disposition home or self-care (01) | DRG 74 ==
LOC: NEPC 06:20 → NEDA 10:39 → N03B 14:52
PROVIDERS: ADMIT Hospitalist; ATTEND Hospitalist
DX: G51.0 Bell's palsy (principal); B02.21 Postherpetic geniculate ganglionitis; I11.9 Hypertensive heart disease without heart failure; I08.1 Rheumatic disorders of both mitral and tricuspid valves; E11.9 Type 2 diabetes mellitus without complications; R29.702 NIHSS score 2; E78.00 Pure hypercholesterolemia, unspecified; R47.02 Dysphasia; R47.1 Dysarthria and anarthria; G83.11 Monoplegia of lower limb affecting right dominant side; R13.11 Dysphagia, oral phase; D16.9 Benign neoplasm of bone and articular cartilage, unspecified; H40.9 Unspecified glaucoma; Z79.4 Long term (current) use of insulin
CPT/HCPCS: 70450; 70486; 70496; 70498; 70553; 71045; 80048; 80053; 80061; 82140; 82550; 82552; 82607; 82746; 82948; 83036; 83735; 84439; 84443; 84484; 85025; 85610; 85730; 86592; 93005; 93306; 96374; A9579; J1815; J2270; J2997; J7030; J7050; J7512; Q9967

== ENCOUNTER 2018-03-08 04:20 | Observation (INO) ==
[2018-03-08 05:30] LABS: Baso % (Auto) 0.4 % (0.0-2.0); Eos # (Auto) 0.1 th/mm3 (0.0-0.4); Eos % (Auto) 1.4 % (0.0-4.0); Hematocrit 45.6 % (39.0-51.0); Hemoglobin 15.8 gm/dL (13.0-17.0); Lymph # (Auto) 2.6 th/mm3 (1.0-4.8); Lymph % (Auto) 32.2 % (9.0-44.0); Mean Corpuscular HGB Conc 34.8 % (32.0-36.0); Mean Corpuscular Hemoglobin 30.6 pg (27.0-34.0); Mean Platelet Volume 10.7 fL (7.0-11.0); Mono # (Auto) 0.7 th/mm3 (0.0-0.9); Mono % (Auto) 8.1 % (0.0-8.0); Neut # (Auto) 4.7 th/mm3 (1.8-7.7); Neut % (Auto) 57.9 % (16.0-70.0); Platelet Count 191 th/mm3 (150-450); Red Blood Count 5.17 mil/mm3 (4.50-5.90); Red Cell Distribution Width 12.9 % (11.6-17.2); White Blood Count 8.1 th/mm3 (4.0-11.0)
--- NOTE | 2018-03-08 05:40 | ED ---
HPI General Chief complaint: Diabetic Stated complaint: BGL issues Time Seen by Provider: 03/08/18 04:48 Source: patient Mode of arrival: ambulatory Limitations: no limitations History of Present Illness HPI narrative: The patient is a 57 year old male who presents to the [facility] emergency department with a history of low blood sugar that occurred while at work earlier this evening. The patient reports that he administered his insulin Tresiba insulin at night prior to going to work at 10:30 PM. He reports that he administered 50 units. He reports that he then was running late for work and forgot to eat. While at work he became weak and sweaty. He reports that he checked his blood sugar and it was noted to be in the 40s. He reports that he ate crackers, drank orange juice, and had a health bar, however he continued to have generalized weakness. He reports that 1 hour ago he then began to experience left arm pain. He reports that the arm is an aching sensation like a muscle ache that occurs when he moves his left arm. He denies having any chest pain, chest pressure, or shortness of breath. He is unsure whether he is ever had a heart attack in the past, however he reports that he is on several heart medications. He denies ever having a heart catheterization , however after reviewing the electronic medical record the patient did have a heart cath that was negative in 2016. He reports that he has had a stress test done, last one year ago. He reports that he is on a low-dose aspirin daily. Patient last took an aspirin yesterday. On review of systems otherwise, the patient denies having any known recent fevers, cough, congestion, neck pain, abdominal pain, vomiting, diarrhea, urinary symptoms, or neurologic symptoms. The patient reports having a right facial droop that he is slowly recovering from related to a Alejo's palsy. Related Data Home Medications Medication Instructions Recorded Confirmed ascorbic acid (vitamin C) [Vitamin 500 mg PO DAILY 02/04/18 03/08/18 C] aspirin 81 mg PO DAILY 02/04/18 03/08/18 atorvastatin 40 mg PO HS 02/04/18 03/08/18 metoprolol tartrate 25 mg PO BID 02/04/18 03/08/18 vitamin E 100 unit PO DAILY 02/04/18 03/08/18 amlodipine [Norvasc] 5 mg PO DAILY 03/08/18 03/08/18 insulin aspart U-100 [Novolog 16 unit SUBCUT TID 03/08/18 03/08/18 U-100 Insulin aspart] insulin degludec [Tresiba 50 unit SUBCUT DAILY 03/08/18 03/08/18 FlexTouch U-100] latanoprost 1 drp OPHTHALMIC (EYE) QPM 03/08/18 03/08/18 Allergies Allergy/AdvReac Type Severity Reaction Status Date / Time No Known Allergies Allergy Verified 03/08/18 04:23 Review of Systems ROS: all other systems reviewed are negative [facility] Medical History Medical History Alejo's palsy (Acute) Diabetes (Acute) Glaucoma (Acute) H/O: stroke (Acute) HTN (hypertension) (Acute) Surgical History Surgical History Hx of cardiac cath (Acute) Social History Social History Substance History: No History of Abuse Second Hand Smoke Exposure: No Smoking Status: Never smoker How Often Do You Have a Drink Containing Alcohol: Never Recent Travel in [facility] within the Last 8 Weeks: No Recent Out of Country Travel within the Last 8 Weeks: No Immunization History Tetanus Immunization: Unsure Exam Const General: cooperative, no acute distress and well developed Nutritional Appearance: well nourished Orientation: alert, awake and oriented x3 HENIA Head: normocephalic and atraumatic Nose: no nasal discharge and no epistaxis Mouth: moist mucous membranes Throat: posterior oropharynx normal and uvula midline Eyes Sclera: normal sclerae Pupils: PERRL Neck Neck: no meningeal signs, trachea midline and no JVD Resp Effort & Inspection: no use of accessory muscles Auscultation: clear to auscultation bilaterally Cardio Rate: regular rate Rhythm: regular rhythm Heart Sounds: no murmurs GI Inspection: non-distended Palpation: soft, no hepatosplenomegaly, no guarding, not rigid and nontender Auscultation: normal bowel sounds Back/Spine/Pelvis Back: no CVA tenderness Skin General: dry skin (warm) Neuro General: alert, awake and oriented x3 Cranial Nerves: other (The patient has a very subtle right-sided facial droop on examination related to Alejo's palsy that was diagnosed in September 2017. Otherwise cranial nerves II through XII are intact.) Speech: speech normal Motor: strength 5/5 throughout and no movement abnormalities noted Sensory Exam: no sensory deficits noted Extrem General: normal to inspection, no clubbing, no cyanosis and no edema Psych Mood: congruent mood Affect: normal affect Judgment: judgment good Course Initial Documented Vital Signs Temperature 96.2 F L 03/08/18 04:23 Pulse Rate 68 03/08/18 04:23 Respiratory Rate 16 03/08/18 04:23 Blood Pressure 159/97 H 03/08/18 04:23 Pulse Oximetry 98 03/08/18 04:23 Last Documented Vital Signs Temperature 98.7 F 03/09/18 11:29 Pulse Rate 64 03/09/18 11:29 Respiratory Rate 16 03/09/18 11:29 Blood Pressure 142/83 H 03/09/18 11:29 Pulse Oximetry 99 03/09/18 11:29 Medical Decision Making MDM Narrative Medical decision making narrative: During the course of the patient's emergency department visit, the patient's history, examination, and differential diagnosis were reviewed with the patient. The patient was placed on a case monitor with oximetry and frequent blood pressure monitoring. The patient had IV access obtained and blood work sent for analysis. A diagnostic evaluation was started regarding the patient's hypoglycemia, left arm pain. The Patient's case was checked out to the oncoming emergency physician at the conclusion of my shift pending completion of his laboratory results. Patient signed out to me at [address] Deluna, please see Dr. Deluna's notes for further details. He has lab work indicating pancreatitis with a lipase of 1000. CAT scan and CT of the C-spine and abdomen did not show any signs of acute issues. His sugars are on the low side and will need to be followed. The case has been discussed with Dr. Bourne for admission. Medical Screen Exam Complete: Yes Emergency Medical Condition: Yes Differential Diagnosis Differential Diagnosis: Hypoglycemia from insulin injection without oral intake , versus acute coronary syndrome, versus muscle strain, versus rotator cuff injury, versus cervical radiculopathy Medical Records Medical records reviewed: Yes I reviewed the patient's medical records. Lab Data Lab results reviewed: Yes I reviewed the patient's lab results. Result diagrams: 03/09/18 05:32 03/09/18 05:32 Lab Results 03/08/18 03/08/18 03/08/18 Range/Units 05:00 05:00 06:00 WBC 8.1 (4.0-11.0) th/mm3 RBC 5.17 (4.50-5.90) mil/mm3 Hgb 15.8 (13.0-17.0) gm/dL Hct 45.6 (39.0-51.0) % MCV 88.0 (80.0-100.0) fL MCH 30.6 (27.0-34.0) pg MCHC 34.8 (32.0-36.0) % RDW 12.9 (11.6-17.2) % Plt Count 191 (150-450) th/mm3 MPV 10.7 (7.0-11.0) fL Neut % (Auto) 57.9 (16.0-70.0) % Lymph % (Auto) 32.2 (9.0-44.0) % Union % (Auto) 8.1 H (0.0-8.0) % Eos % (Auto) 1.4 (0.0-4.0) % Baso % (Auto) 0.4 (0.0-2.0) % Neut # (Auto) 4.7 (1.8-7.7) th/mm3 Lymph # (Auto) 2.6 (1.0-4.8) th/mm3 Union # (Auto) 0.7 (0.0-0.9) th/mm3 Eos # (Auto) 0.1 (0.0-0.4) th/mm3 Baso # (Auto) 0.0 (0.0-0.2) th/mm3 WBC Differential . Differential Comment Auto diff final PT 10.1 (9.8-11.6) sec INR 1.0 Ratio APTT 23.6 (23.4-31.7) sec Sodium 142 (136-145) meq/L Potassium 4.3 (3.5-5.1) meq/L Chloride 107 (98-107) meq/L Carbon Dioxide 27.2 (21.0-32.0) meq/L Anion Gap 8 (5-15) meq/L BUN 17 (7-18) mg/dL Creatinine 1.27 (0.60-1.30) mg/dL Estimated GFR 71 L (>89) mL/min POC Glucose (68-110) mg/dl Random Glucose 71 L (74-106) mg/dL Calcium 8.6 (8.5-10.1) mg/dL Magnesium 2.0 (1.5-2.5) mg/dL Total Bilirubin 0.3 (0.2-1.0) mg/dL AST 25 (15-37) U/L ALT 32 (12-78) U/L Alkaline Phosphatase 84 (45-117) U/L Total Creatine Kinase 592 H (39-308) U/L CK-MB (CK-2) 5.5 H (0.5-3.6) ng/mL CK-MB (CK-2) % 0.9 (0.0-4.0) % Troponin I Less than 0.02 L (0.02-0.05) ng/mL Total Protein 7.3 (6.4-8.2) g/dL Albumin 3.7 (3.4-5.0) g/dL Triglycerides (42-150) mg/dL Cholesterol (120-200) mg/dL LDL Cholesterol, Calc (0-99) mg/dL HDL Cholesterol (40.0-60.0) mg/dL Cholesterol/HDL Ratio Ratio Lipase 1017 H (73-393) U/L Urine Color (Yellw/Straw) Urine Clarity (Clear) Urine pH (5.0-8.5) Ur Specific [place] (1.002-1.035) Urine Protein (Neg-Trace) mg/dL Urine Glucose (UA) (Negative) mg/dL Urine Ketones (Negative) mg/dL Urine Occult Blood (Negative) Urine Nitrate (Negative) Urine Bilirubin (Negative) Urine Urobilinogen (Less than 2) mg/dL Ur Leukocyte Esterase (Negative) Urine RBC (0-3) /hpf Urine WBC (0-5) /hpf Micro UA Comment Ur Microscopic Review Urine Culture Comments 03/08/18 03/08/18 03/08/18 Range/Units 07:44 10:35 10:45 WBC (4.0-11.0) th/mm3 RBC (4.50-5.90) mil/mm3 Hgb (13.0-17.0) gm/dL Hct (39.0-51.0) % MCV (80.0-100.0) fL MCH (27.0-34.0) pg MCHC (32.0-36.0) % RDW (11.6-17.2) % Plt Count (150-450) th/mm3 MPV (7.0-11.0) fL Neut % (Auto) (16.0-70.0) % Lymph % (Auto) (9.0-44.0) % Union % (Auto) (0.0-8.0) % Eos % (Auto) (0.0-4.0) % Baso % (Auto) (0.0-2.0) % Neut # (Auto) (1.8-7.7) th/mm3 Lymph # (Auto) (1.0-4.8) th/mm3 Union # (Auto) (0.0-0.9) th/mm3 Eos # (Auto) (0.0-0.4) th/mm3 Baso # (Auto) (0.0-0.2) th/mm3 WBC Differential Differential Comment PT (9.8-11.6) sec INR Ratio APTT (23.4-31.7) sec Sodium (136-145) meq/L Potassium (3.5-5.1) meq/L Chloride (98-107) meq/L Carbon Dioxide (21.0-32.0) meq/L Anion Gap (5-15) meq/L BUN (7-18) mg/dL Creatinine (0.60-1.30) mg/dL Estimated GFR (>89) mL/min POC Glucose 138 H (68-110) mg/dl Random Glucose (74-106) mg/dL Calcium (8.5-10.1) mg/dL Magnesium (1.5-2.5) mg/dL Total Bilirubin (0.2-1.0) mg/dL AST (15-37) U/L ALT (12-78) U/L Alkaline Phosphatase (45-117) U/L Total Creatine Kinase (39-308) U/L CK-MB (CK-2) (0.5-3.6) ng/mL CK-MB (CK-2) % (0.0-4.0) % Troponin I (0.02-0.05) ng/mL Total Protein (6.4-8.2) g/dL Albumin (3.4-5.0) g/dL Triglycerides (42-150) mg/dL Cholesterol (120-200) mg/dL LDL Cholesterol, Calc (0-99) mg/dL HDL Cholesterol (40.0-60.0) mg/dL Cholesterol/HDL Ratio Ratio Lipase 934 H (73-393) U/L Urine Color Yellow (Yellw/Straw) Urine Clarity Clear (Clear) Urine pH 5.0 (5.0-8.5) Ur Specific [place] 1.020 (1.002-1.035) Urine Protein Negative (Neg-Trace) mg/dL Urine Glucose (UA) 50 (Negative) mg/dL Urine Ketones Negative (Negative) mg/dL Urine Occult Blood Negative (Negative) Urine Nitrate Negative (Negative) Urine Bilirubin Negative (Negative) Urine Urobilinogen Less than 2 (Less than 2) mg/dL Ur Leukocyte Esterase Negative (Negative) Urine RBC 1 (0-3) /hpf Urine WBC Less than 1 (0-5) /hpf Micro UA Comment Culture not ind Ur Microscopic Review Not Reportable Urine Culture Comments Culture not ind 03/08/18 03/08/18 03/08/18 Range/Units 13:50 16:20 23:07 WBC (4.0-11.0) th/mm3 RBC (4.50-5.90) mil/mm3 Hgb (13.0-17.0) gm/dL Hct (39.0-51.0) % MCV (80.0-100.0) fL MCH (27.0-34.0) pg MCHC (32.0-36.0) % RDW (11.6-17.2) % Plt Count (150-450) th/mm3 MPV (7.0-11.0) fL Neut % (Auto) (16.0-70.0) % Lymph % (Auto) (9.0-44.0) % Union % (Auto) (0.0-8.0) % Eos % (Auto) (0.0-4.0) % Baso % (Auto) (0.0-2.0) % Neut # (Auto) (1.8-7.7) th/mm3 Lymph # (Auto) (1.0-4.8) th/mm3 Union # (Auto) (0.0-0.9) th/mm3 Eos # (Auto) (0.0-0.4) th/mm3 Baso # (Auto) (0.0-0.2) th/mm3 WBC Differential Differential Comment PT (9.8-11.6) sec INR Ratio APTT (23.4-31.7) sec Sodium (136-145) meq/L Potassium (3.5-5.1) meq/L Chloride (98-107) meq/L Carbon Dioxide (21.0-32.0) meq/L Anion Gap (5-15) meq/L BUN (7-18) mg/dL Creatinine (0.60-1.30) mg/dL Estimated GFR (>89) mL/min POC Glucose 160 H 290 H 401 H (68-110) mg/dl Random Glucose (74-106) mg/dL Calcium (8.5-10.1) mg/dL Magnesium (1.5-2.5) mg/dL Total Bilirubin (0.2-1.0) mg/dL AST (15-37) U/L ALT (12-78) U/L Alkaline Phosphatase (45-117) U/L Total Creatine Kinase (39-308) U/L CK-MB (CK-2) (0.5-3.6) ng/mL CK-MB (CK-2) % (0.0-4.0) % Troponin I (0.02-0.05) ng/mL Total Protein (6.4-8.2) g/dL Albumin (3.4-5.0) g/dL Triglycerides (42-150) mg/dL Cholesterol (120-200) mg/dL LDL Cholesterol, Calc (0-99) mg/dL HDL Cholesterol (40.0-60.0) mg/dL Cholesterol/HDL Ratio Ratio Lipase (73-393) U/L Urine Color (Yellw/Straw) Urine Clarity (Clear) Urine pH (5.0-8.5) Ur Specific [place] (1.002-1.035) Urine Protein (Neg-Trace) mg/dL Urine Glucose (UA) (Negative) mg/dL Urine Ketones (Negative) mg/dL Urine Occult Blood (Negative) Urine Nitrate (Negative) Urine Bilirubin (Negative) Urine Urobilinogen (Less than 2) mg/dL Ur Leukocyte Esterase (Negative) Urine RBC (0-3) /hpf Urine WBC (0-5) /hpf Micro UA Comment Ur Microscopic Review Urine Culture Comments 03/09/18 03/09/18 03/09/18 Range/Units 04:02 05:32 05:32 WBC 5.9 (4.0-11.0) th/mm3 RBC 4.92 (4.50-5.90) mil/mm3 Hgb 14.7 (13.0-17.0) gm/dL Hct 43.9 (39.0-51.0) % MCV 89.2 (80.0-100.0) fL MCH 29.9 (27.0-34.0) pg MCHC 33.5 (32.0-36.0) % RDW 12.6 (11.6-17.2) % Plt Count 155 (150-450) th/mm3 MPV 9.7 (7.0-11.0) fL Neut % (Auto) 36.5 (16.0-70.0) % Lymph % (Auto) 49.6 H (9.0-44.0) % Union % (Auto) 9.2 H (0.0-8.0) % Eos % (Auto) 3.9 (0.0-4.0) % Baso % (Auto) 0.8 (0.0-2.0) % Neut # (Auto) 2.1 (1.8-7.7) th/mm3 Lymph # (Auto) 2.9 (1.0-4.8) th/mm3 Union # (Auto) 0.5 (0.0-0.9) th/mm3 Eos # (Auto) 0.2 (0.0-0.4) th/mm3 Baso # (Auto) 0.0 (0.0-0.2) th/mm3 WBC Differential . Differential Comment Auto diff final PT (9.8-11.6) sec INR Ratio APTT (23.4-31.7) sec Sodium 144 (136-145) meq/L Potassium 3.9 (3.5-5.1) meq/L Chloride 109 H (98-107) meq/L Carbon Dioxide 26.9 (21.0-32.0) meq/L Anion Gap 8 (5-15) meq/L BUN 15 (7-18) mg/dL Creatinine 1.52 H (0.60-1.30) mg/dL Estimated GFR (>89) mL/min POC Glucose 171 H (68-110) mg/dl Random Glucose 139 H (74-106) mg/dL Calcium 8.7 (8.5-10.1) mg/dL Magnesium (1.5-2.5) mg/dL Total Bilirubin 0.4 (0.2-1.0) mg/dL AST 11 L (15-37) U/L ALT 28 (12-78) U/L Alkaline Phosphatase 91 (45-117) U/L Total Creatine Kinase (39-308) U/L CK-MB (CK-2) (0.5-3.6) ng/mL CK-MB (CK-2) % (0.0-4.0) % Troponin I (0.02-0.05) ng/mL Total Protein 7.0 (6.4-8.2) g/dL Albumin 3.6 (3.4-5.0) g/dL Triglycerides 97 (42-150) mg/dL Cholesterol 132 (120-200) mg/dL LDL Cholesterol, Calc 77 (0-99) mg/dL HDL Cholesterol 35.3 L (40.0-60.0) mg/dL Cholesterol/HDL Ratio 3.73 Ratio Lipase 1450 H (73-393) U/L Urine Color (Yellw/Straw) Urine Clarity (Clear) Urine pH (5.0-8.5) Ur Specific [place] (1.002-1.035) Urine Protein (Neg-Trace) mg/dL Urine Glucose (UA) (Negative) mg/dL Urine Ketones (Negative) mg/dL Urine Occult Blood (Negative) Urine Nitrate (Negative) Urine Bilirubin (Negative) Urine Urobilinogen (Less than 2) mg/dL Ur Leukocyte Esterase (Negative) Urine RBC (0-3) /hpf Urine WBC (0-5) /hpf Micro UA Comment Ur Microscopic Review Urine Culture Comments 03/09/18 03/09/18 03/09/18 Range/Units 07:59 11:45 17:01 WBC (4.0-11.0) th/mm3 RBC (4.50-5.90) mil/mm3 Hgb (13.0-17.0) gm/dL Hct (39.0-51.0) % MCV (80.0-100.0) fL MCH (27.0-34.0) pg MCHC (32.0-36.0) % RDW (11.6-17.2) % Plt Count (150-450) th/mm3 MPV (7.0-11.0) fL Neut % (Auto) (16.0-70.0) % Lymph % (Auto) (9.0-44.0) % Union % (Auto) (0.0-8.0) % Eos % (Auto) (0.0-4.0) % Baso % (Auto) (0.0-2.0) % Neut # (Auto) (1.8-7.7) th/mm3 Lymph # (Auto) (1.0-4.8) th/mm3 [place] # (Auto) (0.0-0.9) th/mm3 Eos # (Auto) (0.0-0.4) th/mm3 Baso # (Auto) (0.0-0.2) th/mm3 WBC Differential Differential Comment PT (9.8-11.6) sec INR Ratio APTT (23.4-31.7) sec Sodium (136-145) meq/L Potassium (3.5-5.1) meq/L Chloride (98-107) meq/L Carbon Dioxide (21.0-32.0) meq/L Anion Gap (5-15) meq/L BUN (7-18) mg/dL Creatinine (0.60-1.30) mg/dL Estimated GFR (>89) mL/min POC Glucose 107 189 H 307 H (68-110) mg/dl Random Glucose (74-106) mg/dL Calcium (8.5-10.1) mg/dL Magnesium (1.5-2.5) mg/dL Total Bilirubin (0.2-1.0) mg/dL AST (15-37) U/L ALT (12-78) U/L Alkaline Phosphatase (45-117) U/L Total Creatine Kinase (39-308) U/L CK-MB (CK-2) (0.5-3.6) ng/mL CK-MB (CK-2) % (0.0-4.0) % Troponin I (0.02-0.05) ng/mL Total Protein (6.4-8.2) g/dL Albumin (3.4-5.0) g/dL Triglycerides (42-150) mg/dL Cholesterol (120-200) mg/dL LDL Cholesterol, Calc (0-99) mg/dL HDL Cholesterol (40.0-60.0) mg/dL Cholesterol/HDL Ratio Ratio Lipase (73-393) U/L Urine Color (Yellw/Straw) Urine Clarity (Clear) Urine pH (5.0-8.5) Ur Specific [place] (1.002-1.035) Urine Protein (Neg-Trace) mg/dL Urine Glucose (UA) (Negative) mg/dL Urine Ketones (Negative) mg/dL Urine Occult Blood (Negative) Urine Nitrate (Negative) Urine Bilirubin (Negative) Urine Urobilinogen (Less than 2) mg/dL Ur Leukocyte Esterase (Negative) Urine RBC (0-3) /hpf Urine WBC (0-5) /hpf Micro UA Comment Ur Microscopic Review Urine Culture Comments Imaging Data Radiologist's impression: Chest X-Ray 03/08/18 05:06 CONCLUSION: No acute disease Abdomen/Pelvis CT 03/08/18 06:41 CONCLUSION: 1. No acute CT abnormality in the abdomen or pelvis. 2. Ancillary findings include multiple bilateral renal cystic lesions most of which are too small to fully characterize, small fat-containing periumbilical hernia and mild scattered colonic diverticulosis. Cervical Spine CT 03/08/18 06:41 CONCLUSION: 1. 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 2. Moderate to severe left neural foraminal stenosis at C5-6. ECG Data Attestation: I personally reviewed and interpreted this ECG as follows: Interpretation: The patient had an EKG done on arrival that shows a sinus rhythm heart rate of 68, QRS duration 95 ms, QTC [address] segment elevation. Discharge Plan Discharge Disposition Patient Disposition: 30 Still Patient Discharge Condition Condition: Stable Discharge Order Discharge Orders: Discharge Order (Routine); Ordered 03/09/18 Ordered By: Gayathri Marr Discharge Details Anticipated Discharge Date: 03/09/18 Diagnosis: Acute pancreatitis, Hypoglycemia Physicians Team ED Provider: Petty Deluna Primary Care Provider: Kaylee Montano Attending Provider: Michael Bourne Status ED Status: Left Department Discharge Information Discharge Date/Time: 03/08/18 15:15
[2018-03-08 05:46] LABS: Activated Partial Thrombo Time 23.6 sec (23.4-31.7); Prothrombin Time 10.1 sec (9.8-11.6)
--- NOTE | 2018-03-08 05:46 | XR ---
EXAM DATE: 03/08/2018 5:20 AM EST AGE/SEX: 57 years / Male INDICATIONS: Chest pain. Low blood sugar. Left arm pain. CLINICAL DATA: This is the patient's initial encounter. Patient reports that signs and symptoms have been present for 1 day and indicates a pain score of 3/10. MEDICAL/SURGICAL HISTORY: . Diabetes mellitus type II. Hypertension. None. COMPARISON: [facility] – [place] CHEST SINGLE AP, 10/21/2017. . FINDINGS: A single AP view of the chest demonstrates the lungs to be symmetrically aerated without evidence of mass, infiltrate or effusion. The cardiomediastinal contours are unremarkable. Osseous structures a re intact. CONCLUSION: No acute disease Electronically signed by: Jose Maria August MD 03/08/2018 5:44 AM EST
[2018-03-08 06:28] LABS: Alanine Aminotransferase 32 U/L (12-78); Albumin 3.7 g/dL (3.4-5.0); Alkaline Phosphatase 84 U/L (45-117); Anion Gap 8 meq/L (5-15); Aspartate Aminotransferase 25 U/L (15-37); Blood Urea Nitrogen 17 mg/dL (7-18); Calcium 8.6 mg/dL (8.5-10.1); Carbon Dioxide 27.2 meq/L (21.0-32.0); Chloride 107 meq/L (98-107); Creatine Kinase 592 U/L (39-308); Glomerular Filtration Rate 71 mL/min (>89); Glucose,Random 71 mg/dL (74-106); Lipase 1017 U/L (73-393); Sodium 142 meq/L (136-145); Total Protein 7.3 g/dL (6.4-8.2)
[2018-03-08 06:30] LABS: Potassium 4.3 meq/L (3.5-5.1)
[2018-03-08 06:42] LABS: CKMB Percent 0.9 % (0.0-4.0); Creatine Kinase MB 5.5 ng/mL (0.5-3.6)
--- NOTE | 2018-03-08 07:59 | CT ---
EXAM DATE: 03/08/2018 7:50 AM EST AGE/SEX: 57 years / Male INDICATIONS: Left shoulder pain. No known injury. CLINICAL DATA: This is the patient's initial encounter. Patient reports that signs and symptoms have been present for 1 day and indicates a pain score of 5/10. MEDICAL/SURGICAL HISTORY: Diabetes. Hypertension. None. RADIATION DOSE: 26.03 CTDI (mGy) COMPARISON: [facility], CTA CAROTID ARTERIES W 3D RECON, 10/21/2017. . TECHNIQUE: Contiguous axial images were obtained using helical multirow detector technique. The vol umetric data was post-processed with multiplanar reconstruction in oblique axial, sagittal, and coron al planes. Using automated exposure control and adjustment of the mA and/or kV according to patient s ize, radiation dose was kept as low as reasonably achievable to obtain optimal diagnostic quality ami ges. DICOM format image data is available electronically for review and comparison. FINDINGS: VERTEBRAE: Normal vertebral body height. ALIGNMENT: Normal. PARASPINAL SOFT TISSUES: No significant adenopathy or mass. Visualized lung apices are clear. C2-3: The bony spinal canal is normal in size. No evidence of disc bulge or herniation. The neura l foramina are bilaterally patent. C3-4: Diffuse disc bulge slightly eccentric to the right with mild bilateral facet arthropathy. Res ultant central canal narrowing to approximately 8 mm. Bony neural foramina are patent. C4-5: Posterior disc osteophytes resulting in central canal narrowing to approximately 7 mm. Mild b ilateral facet arthropathy. Mild bony right neural foraminal narrowing. C5-6: Posterior disc osteophytes resulting in central canal narrowing to approximately 6 mm. Mild b ilateral facet arthropathy. Mild right and moderate severe left neural foraminal stenosis. C6-7: Posterior disc osteophytes with central canal narrowing to approximately 6 mm. Mild bilateral facet arthropathy. Mild bilateral bony neural foraminal stenosis. C7-T1: The bony spinal canal is normal in size. No evidence of disc bulge or herniation. The neura l foramina are bilaterally patent. CONCLUSION: 1. Advanced degenerative spondylosis of the lower lumbar spine most prominently at C4-7 with moderat e to severe central canal narrowing, as above. 2. Moderate to severe left neural foraminal stenosis at C5-6. Electronically signed by: Bob Mcallister MD 03/08/2018 7:58 AM EST
[2018-03-08] MEDS: Lisinopril 20 MG Tablet PO SCH (08:00)
--- NOTE | 2018-03-08 08:03 | CT ---
EXAM DATE: 03/08/2018 7:52 AM EST AGE/SEX: 57 years / Male INDICATIONS: Left shoulder pain. No abdominal pain. Low blood sugar. CLINICAL DATA: This is the patient's initial encounter. Patient reports that signs and symptoms have been present for 1 day and indicates a pain score of 0/10. MEDICAL/SURGICAL HISTORY: Diabetes. Hypertension. None. ORAL CONTRAST: No oral contrast ingested. RADIATION DOSE: 20.17 CTDI (mGy) COMPARISON: [facility], HIP RIGHT (AP&LAT 2/3VWS) W AP PELVIS, 07/05/2015. . TECHNIQUE: Multiple contiguous axial images were obtained through the abdomen and pelvis following b olus infusion of 90 ml Omnipaque 350 (iohexol) nonionic water-soluble contrast as a single exam dos e. No oral contrast ingested. Using automated exposure control and adjustment of the mA and/or kV ac cording to patient size, radiation dose was kept as low as reasonably achievable to obtain optimal di agnostic quality images. DICOM format image data is available electronically for review and comparis on. FINDINGS: LOWER LUNGS: The visualized lower lungs are clear. LIVER: The liver has a homogeneous density without space-occupying lesion. There is no dilation of t he biliary tree. SPLEEN: Homogeneous density without enlargement. PANCREAS: Unremarkable without mass or calcification. KIDNEYS: Kidneys demonstrate symmetrical enhancement without radiopaque renal calculi or hydronephro sis. There are multiple bilateral hypodense cystic lesions most of which are too small to fully david cterize. ADRENAL GLANDS: Unremarkable. AORTA: Carla-aneurysmal. BOWEL/MESENTERY: Mild scattered colonic diverticulosis without significant inflammatory change. The bowel loops are otherwise unremarkable. The cecum and sigmoid colon have a normal configuration. Evangelina endix is visualized and normal in appearance. ABDOMINAL WALL: Small fat-containing periumbilical anterior abdominal wall hernia. RETROPERITONEUM: No evidence of adenopathy in the retrocrural, para-aortic, or deep pelvic regions. BLADDER: Contours are smooth. REPRODUCTIVE: Grossly unremarkable. BONY STRUCTURES: Left hip arthroplasty in place. Otherwise, unremarkable. CONCLUSION: 1. No acute CT abnormality in the abdomen or pelvis. 2. Ancillary findings include multiple bilateral renal cystic lesions most of which are too small to fully characterize, small fat-containing periumbilical hernia and mild scattered colonic diverticulo sis. Electronically signed by: Bob Mcallister MD 03/08/2018 8:01 AM EST
[2018-03-08] MEDS ORDERED: Temazepam 15 MG Capsule PO PRN (10:08)
[2018-03-08] MEDS ORDERED: Acetaminophen 325 MG Tablet PO PRN (10:08)
--- NOTE | 2018-03-08 10:50 | ED ---
HPI General Chief complaint: Diabetic Stated complaint: BGL issues Time Seen by Provider: 03/08/18 04:48 Source: patient Mode of arrival: ambulatory Limitations: no limitations Related Data Home Medications Medication Instructions Recorded Confirmed ascorbic acid (vitamin C) [Vitamin 500 mg PO DAILY 02/04/18 03/08/18 C] aspirin 81 mg PO DAILY 02/04/18 03/08/18 atorvastatin 40 mg PO DAILY 02/04/18 03/08/18 metoprolol tartrate 25 mg PO BID 02/04/18 03/08/18 vitamin E 100 unit PO DAILY 02/04/18 03/08/18 Allergies Allergy/AdvReac Type Severity Reaction Status Date / Time No Known Allergies Allergy Verified 03/08/18 04:23 [facility] Medical History Medical History Alejo's palsy (Acute) Glaucoma (Acute) H/O: stroke (Acute) Diabetes (Acute) HTN (hypertension) (Acute) Surgical History Surgical History Hx of cardiac cath (Acute) Social History Social History Substance History: No History of Abuse Second Hand Smoke Exposure: No Smoking Status: Never smoker How Often Do You Have a Drink Containing Alcohol: Never Recent Travel in [place] within the Last 8 Weeks: No Recent Out of Country Travel within the Last 8 Weeks: No Immunization History Tetanus Immunization: Unsure Course Initial Documented Vital Signs Temperature 96.2 F L 03/08/18 04:23 Pulse Rate 68 03/08/18 04:23 Respiratory Rate 16 03/08/18 04:23 Blood Pressure 159/97 H 03/08/18 04:23 Pulse Oximetry 98 03/08/18 04:23 Last Documented Vital Signs Temperature 97.8 F 03/08/18 10:00 Pulse Rate 70 03/08/18 10:00 Respiratory Rate 16 03/08/18 10:00 Blood Pressure 160/86 H 03/08/18 10:00 Pulse Oximetry 99 03/08/18 10:00 Medical Decision Making Lab Data Result diagrams: 03/08/18 05:00 03/08/18 06:00 Lab Results 03/08/18 03/08/18 03/08/18 Range/Units 05:00 05:00 06:00 WBC 8.1 (4.0-11.0) th/mm3 RBC 5.17 (4.50-5.90) mil/mm3 Hgb 15.8 (13.0-17.0) gm/dL Hct 45.6 (39.0-51.0) % MCV 88.0 (80.0-100.0) fL MCH 30.6 (27.0-34.0) pg MCHC 34.8 (32.0-36.0) % RDW 12.9 (11.6-17.2) % Plt Count 191 (150-450) th/mm3 MPV 10.7 (7.0-11.0) fL Neut % (Auto) 57.9 (16.0-70.0) % Lymph % (Auto) 32.2 (9.0-44.0) % Brule % (Auto) 8.1 H (0.0-8.0) % Eos % (Auto) 1.4 (0.0-4.0) % Baso % (Auto) 0.4 (0.0-2.0) % Neut # (Auto) 4.7 (1.8-7.7) th/mm3 Lymph # (Auto) 2.6 (1.0-4.8) th/mm3 Brule # (Auto) 0.7 (0.0-0.9) th/mm3 Eos # (Auto) 0.1 (0.0-0.4) th/mm3 Baso # (Auto) 0.0 (0.0-0.2) th/mm3 WBC Differential . Differential Comment Auto diff final PT 10.1 (9.8-11.6) sec INR 1.0 Ratio APTT 23.6 (23.4-31.7) sec Sodium 142 (136-145) meq/L Potassium 4.3 (3.5-5.1) meq/L Chloride 107 (98-107) meq/L Carbon Dioxide 27.2 (21.0-32.0) meq/L Anion Gap 8 (5-15) meq/L BUN 17 (7-18) mg/dL Creatinine 1.27 (0.60-1.30) mg/dL Estimated GFR 71 L (>89) mL/min POC Glucose (68-110) mg/dl Random Glucose 71 L (74-106) mg/dL Calcium 8.6 (8.5-10.1) mg/dL Magnesium 2.0 (1.5-2.5) mg/dL Total Bilirubin 0.3 (0.2-1.0) mg/dL AST 25 (15-37) U/L ALT 32 (12-78) U/L Alkaline Phosphatase 84 (45-117) U/L Total Creatine Kinase 592 H (39-308) U/L CK-MB (CK-2) 5.5 H (0.5-3.6) ng/mL CK-MB (CK-2) % 0.9 (0.0-4.0) % Troponin I Less than 0.02 L (0.02-0.05) ng/mL Total Protein 7.3 (6.4-8.2) g/dL Albumin 3.7 (3.4-5.0) g/dL Lipase 1017 H (73-393) U/L 03/08/18 Range/Units 07:44 WBC (4.0-11.0) th/mm3 RBC (4.50-5.90) mil/mm3 Hgb (13.0-17.0) gm/dL Hct (39.0-51.0) % MCV (80.0-100.0) fL MCH (27.0-34.0) pg MCHC (32.0-36.0) % RDW (11.6-17.2) % Plt Count (150-450) th/mm3 MPV (7.0-11.0) fL Neut % (Auto) (16.0-70.0) % Lymph % (Auto) (9.0-44.0) % Brule % (Auto) (0.0-8.0) % Eos % (Auto) (0.0-4.0) % Baso % (Auto) (0.0-2.0) % Neut # (Auto) (1.8-7.7) th/mm3 Lymph # (Auto) (1.0-4.8) th/mm3 Brule # (Auto) (0.0-0.9) th/mm3 Eos # (Auto) (0.0-0.4) th/mm3 Baso # (Auto) (0.0-0.2) th/mm3 WBC Differential Differential Comment PT (9.8-11.6) sec INR Ratio APTT (23.4-31.7) sec Sodium (136-145) meq/L Potassium (3.5-5.1) meq/L Chloride (98-107) meq/L Carbon Dioxide (21.0-32.0) meq/L Anion Gap (5-15) meq/L BUN (7-18) mg/dL Creatinine (0.60-1.30) mg/dL Estimated GFR (>89) mL/min POC Glucose 138 H (68-110) mg/dl Random Glucose (74-106) mg/dL Calcium (8.5-10.1) mg/dL Magnesium (1.5-2.5) mg/dL Total Bilirubin (0.2-1.0) mg/dL AST (15-37) U/L ALT (12-78) U/L Alkaline Phosphatase (45-117) U/L Total Creatine Kinase (39-308) U/L CK-MB (CK-2) (0.5-3.6) ng/mL CK-MB (CK-2) % (0.0-4.0) % Troponin I (0.02-0.05) ng/mL Total Protein (6.4-8.2) g/dL Albumin (3.4-5.0) g/dL Lipase (73-393) U/L Imaging Data Radiologist's impression: Chest X-Ray 03/08/18 05:06 CONCLUSION: No acute disease Abdomen/Pelvis CT 03/08/18 06:41 CONCLUSION: 1. No acute CT abnormality in the abdomen or pelvis. 2. Ancillary findings include multiple bilateral renal cystic lesions most of which are too small to fully characterize, small fat-containing periumbilical hernia and mild scattered colonic diverticulosis. Cervical Spine CT 03/08/18 06:41 CONCLUSION: 1. 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 2. Moderate to severe left neural foraminal stenosis at C5-6. Discharge Plan Discharge Disposition Patient Disposition: 30 Still Patient Discharge Condition Condition: Stable Discharge Details Anticipated Discharge Date: 03/08/18 Diagnosis: Acute pancreatitis, Hypoglycemia Physicians Team ED Provider: Petty Deluna Primary Care Provider: Kaylee Montano Attending Provider: Michael Bourne Status ED Status: Admitted Patient
--- NOTE | 2018-03-08 10:57 | P.HPIM ---
History of Present Illness Primary Care Physician: Kaylee Montano MD Chief Complaint: hypoglycemia History of Present Illness: The is a 57 year old male patient with a past medical history which includes Earp Palsy, HTN, Glaucoma, chronic lower back pain, chronic kidney disease stage II, senile cataracts, hyperlipidemia, diabetes mellitus. Patient presented to [facility] with a history of low blood sugar that occurred while at work earlier this evening. The patient reports that he administered his insulin Tresiba insulin at night prior to going to work at 10:30 PM. He reports that he administered 50 units. He reports that he then was running late for work and forgot to eat. While at work he became weak and sweaty. He reports that he checked his blood sugar and it was noted to be in the 40s. He reports that he ate crackers, drank orange juice, and had a health bar, however he continued to have generalized weakness. He reports that 1 hour ago he then began to experience left arm pain. He reports that the arm is an aching sensation like a muscle ache that occurs when he moves his left arm. He denies having any chest pain, chest pressure, or shortness of breath. After reviewing the electronic medical record the patient did have a heart catheterization that was negative in 2016. He reports that he has had a stress test done, last one year ago. He reports that he is on a low-dose aspirin daily. Patient last took an aspirin yesterday. On review of systems otherwise, the patient denies having any known recent fevers, cough, congestion , neck pain, abdominal pain, vomiting, diarrhea, urinary symptoms, or neurologic symptoms. The patient reports having a right facial droop that he is slowly recovering from related to a Alejo's palsy. PMH: Earp Palsy, HTN, Glaucoma, chronic lower back pain, chronic kidney disease stage II, senile cataracts, hyperlipidemia, diabetes mellitus PSxH: Laser procedure NOS 2016, left hip replacement 2012, right thumb surgery 1995, left ankle surgery 1991 FMH: Mother in her 50s 60s had DM, Leukemia Father has Glaucoma and HTN Social History: ETOH use 1-2 beers weekly Denies tobacco use now or in the past Diagnosis (1) Hypoglycemia: Medications and Allergies Allergies Allergy/AdvReac Type Severity Reaction Status Date / Time No Known Allergies Allergy Verified 03/08/18 04:23 Home Medications Medication Instructions Recorded Confirmed Type ascorbic acid (vitamin C) [Vitamin 500 mg PO DAILY 02/04/18 03/08/18 History C] aspirin 81 mg PO DAILY 02/04/18 03/08/18 History atorvastatin 40 mg PO HS 02/04/18 03/08/18 History metoprolol tartrate 25 mg PO BID 02/04/18 03/08/18 History vitamin E 100 unit PO DAILY 02/04/18 03/08/18 History amlodipine [Norvasc] 5 mg PO DAILY 03/08/18 03/08/18 History insulin aspart U-100 [Novolog 16 unit SUBCUT TID 03/08/18 03/08/18 History U-100 Insulin aspart] insulin degludec [Tresiba 50 unit SUBCUT DAILY 03/08/18 03/08/18 History FlexTouch U-100] latanoprost 1 drp OPHTHALMIC (EYE) QPM 03/08/18 03/08/18 History Active Medications: Active Medications Acetaminophen (Tylenol) 650 mg PO Q4H PRN PRN Reason: Temp > 100.4 Al Hydroxide/Mg Hydroxide (Milk Of allyveashli Foster) 30 ml PO Q12H PRN PRN Reason: Mild Constipation Aspirin (Aspirin) 81 mg PO DAILY MAXI Atorvastatin Calcium (Lipitor) 40 mg PO DAILY MAXI Potassium Chloride/Sodium Chloride (Potassium Chlor 20 Meq/Nacl 0.45% Inj) 1, 000 mls @ 84 mls/hr IV.CONT .[id number] MAXI Lisinopril (Prinivil) 20 mg PO DAILY MAXI Metoprolol Tartrate (Lopressor) 25 mg PO BID MAXI Ondansetron HCl (Zofran Inj) 4 mg IV.PUSH Q6H PRN PRN Reason: NAUSEA OR VOMITING Senna/Docusate Sodium (Deidre-Colace) 1 tab PO BID [facility] Sodium Chloride (Ns Flush) 2 ml IV.FLUSH UNSCH PRN PRN Reason: FLUSH AFTER USING IV ACCESS Temazepam (Restoril) 15 mg PO HS PRN PRN Reason: INSOMNIA Physical Exam Vital signs: Last Vital Signs Temp 97.8 F 03/08/18 10:00 Pulse 70 03/08/18 10:00 Resp 16 03/08/18 10:00 BP 160/86 H 03/08/18 10:00 Pulse Ox 99 11/07/18 10:00 Narrative: GENERAL: This is a well-nourished, well-developed patient, in no apparent distress. CARDIOVASCULAR: Regular rate and rhythm without murmurs, gallops, or rubs. RESPIRATORY: Clear to auscultation. Breath sounds equal bilaterally. No wheezes , rales, or rhonchi. GASTROINTESTINAL: Abdomen soft, non-tender, nondistended. Normal active bowel sounds MUSCULOSKELETAL: Extremities without clubbing, cyanosis, or edema. NEURO: Alert & Oriented x4 to person, place, time, situation. Moves all ext x4 Results Labs CBC & Chem 7: 03/08/18 05:00 03/08/18 06:00 Caprini VTE Risk Assessment Caprini VTE Risk Assessment: No/Low Risk (score <= 1) Caprini Risk Assessment Model: Point Value = 1 Point Value = 2 Point Value = 3 Point Value = 5 Age 41-60 Minor surgery BMI > 25 kg/m2 Swollen legs Varicose veins or History of unexplained or recurrent spontaneous Oral contraceptives or hormone replacement Sepsis (< 1 month) Serious lung disease, including pneumonia (< 1 month) Abnormal pulmonary function Acute myocardial infarction Congestive heart failure (< 1 month) History of inflammatory bowel disease Medical patient at bed rest Age 61-74 Arthroscopic surgery Major open surgery (> 45 min) Laparoscopic surgery (> 45 min) Malignancy Confined to bed (> 72 hours) Immobilizing plaster cast Central venous access Age >= 75 History of VTE Family history of VTE Factor V Leiden Prothrombin [id number] Lupus anticoagulant Anticardiolipin antibodies Elevated serum homocysteine Heparin-induced thrombocytopenia Other congenital or acquired thrombophilia Stroke (< 1 month) Elective arthroplasty Hip, pelvis, or leg fracture Acute spinal cord injury (< 1 month) Prophylaxis Regimen: Total Risk Factor Score Risk Level Prophylaxis Regimen 0-1 Low Early ambulation 2 Moderate Order ONE of the following: *Sequential Compression Device (SCD) *Heparin 5000 units SQ BID 3-4 Higher Order ONE of the following medications: *Heparin 5000 units SQ TID *Enoxaparin/Lovenox 40 mg SQ daily (WT < 150 kg, CrCl > 30 mL/min) *Enoxaparin/Lovenox 30 mg SQ daily (WT < 150 kg, CrCl > 10-29 mL/min) *Enoxaparin/Lovenox 30 mg SQ BID (WT < 150 kg, CrCl > 30 mL/min) AND/OR *Sequential Compression Device (SCD) 5 or more Highest Order ONE of the following medications: *Heparin 5000 units SQ TID (Preferred with Epidurals) *Enoxaparin/Lovenox 40 mg SQ daily (WT < 150 kg, CrCl > 30 mL/min) *Enoxaparin/Lovenox 30 mg SQ daily (WT < 150 kg, CrCl > 10-29 mL/min) *Enoxaparin/Lovenox 30 mg SQ BID (WT < 150 kg, CrCl > 30 mL/min) AND *Sequential Compression Device (SCD) Assessment and Plan Assessment (1) Hypoglycemia: Code(s): E16.2 - Hypoglycemia, unspecified Status: Acute Plan The is a 57 year old male patient with a past medical history which includes Earp Palsy, HTN, Glaucoma, chronic lower back pain, chronic kidney disease stage 2, senile cataracts, hyperlipidemia, diabetes mellitus. Patient presented to [facility] with a history of low blood sugar that occurred while at work earlier this evening. The patient reports that he administered his insulin Tresiba insulin at night prior to going to work at 10:30 PM. He reports that he administered 50 units. He reports that he then was running late for work and forgot to eat. While at work he became weak and sweaty. He reports that he checked his blood sugar and it was noted to be in the 40s. He reports that he ate crackers, drank orange juice, and had a health bar, however he continued to have generalized weakness. Hypoglycemia Diabetes mellitus administered his insulin Tresiba insulin at night prior to going to work at 10: 30 PM. He reports that he administered 50 units. He reports that he then was running late for work and forgot to eat. While at work he became weak and sweaty. He reports that he checked his blood sugar and it was noted to be in the 40s Continue diabetic diet blood glucose now improved 138 this AM Patient educated that he must eat if he takes his insulin Recommend patient follow up with PCP after DC Elevated lipase Initial lipase 1017 repeat lipase 934 Patient denies abdominal pain at this time CONCLUSION: 1. No acute CT abnormality in the abdomen or pelvis. 2. Ancillary findings include multiple bilateral renal cystic lesions most of which are too small to fully characterize, small fat containing periumbilical hernia and mild scattered colonic diverticulosis. IV fluids recheck lipase in AM lipid panel in AM Janine Palsy Chronic and stable HTN Continue patient's home amlodipine 5 mg p.o. daily, lisinopril 40 mg daily and metoprolol 25 mg p.o. twice daily Chronic kidney disease stage 2 Avoid nephrotoxic agents Hyperlipidemia Continue patient's home atorvastatin 40 mg p.o. daily
[2018-03-08] MEDS ORDERED: KCL 20 mEq/NACL 0.45% Inj 1,000 ML IV.CONT SCH (11:00)
[2018-03-08 11:19] LABS: Bilirubin,Urine Negative (Negative); Clarity,Urine Clear (Clear); Color,Urine Yellow (Yellw/Straw); Glucose,Urine (UA) 50 mg/dL (Negative); Leukocyte Esterase,Urine Negative (Negative); Nitrite,Urine Negative (Negative)
[2018-03-08] MEDS: Metoprolol Tartrate 25 MG Tablet PO SCH ×2 (11:40→23:18)
--- NOTE | 2018-03-08 18:42 | ECG ---
Date Performed: 03/08/2018 Time Performed: 04:40:02 PTAGE: 57 years EKG: Sinus rhythm NONSPECIFIC T-WAVE ABNORMALITY BORDERLINE ECG PREVIOUS TRACING : 02/04/2018 14.52 Since the previous tracing, no significant change noted DOCTOR: Danny Hernandez Interpretating Date/Time 03/08/2018 18:40:30
[2018-03-08] MEDS ORDERED: Insulin Detemir Inj 1,000 UNIT/10 ML Vial SQ SCH (21:00)
[2018-03-08] MEDS: Senna/Docusate Sodium 8.6/50 MG Tablet PO SCH (23:18)
[2018-03-08] MEDS: Insulin NovoLOG Aspart Correctional Sugar Inj SQ SCH (23:20)
[2018-03-09] MEDS: Insulin NovoLOG Aspart Correctional Sugar Inj SQ SCH ×3 (04:07→14:15)
[2018-03-09 06:01] LABS: Baso % (Auto) 0.8 % (0.0-2.0); Eos # (Auto) 0.2 th/mm3 (0.0-0.4); Eos % (Auto) 3.9 % (0.0-4.0); Hematocrit 43.9 % (39.0-51.0); Hemoglobin 14.7 gm/dL (13.0-17.0); Lymph # (Auto) 2.9 th/mm3 (1.0-4.8); Lymph % (Auto) 49.6 % (9.0-44.0); Mean Corpuscular HGB Conc 33.5 % (32.0-36.0); Mean Corpuscular Hemoglobin 29.9 pg (27.0-34.0); Mean Corpuscular Volume 89.2 fL (80.0-100.0); Mean Platelet Volume 9.7 fL (7.0-11.0); Mono # (Auto) 0.5 th/mm3 (0.0-0.9); Mono % (Auto) 9.2 % (0.0-8.0); Neut # (Auto) 2.1 th/mm3 (1.8-7.7); Neut % (Auto) 36.5 % (16.0-70.0); Platelet Count 155 th/mm3 (150-450); Red Blood Count 4.92 mil/mm3 (4.50-5.90); Red Cell Distribution Width 12.6 % (11.6-17.2); White Blood Count 5.9 th/mm3 (4.0-11.0)
[2018-03-09 06:26] LABS: Albumin 3.6 g/dL (3.4-5.0); Anion Gap 8 meq/L (5-15); Aspartate Aminotransferase 11 U/L (15-37); Blood Urea Nitrogen 15 mg/dL (7-18); Calcium 8.7 mg/dL (8.5-10.1); Carbon Dioxide 26.9 meq/L (21.0-32.0); Chloride 109 meq/L (98-107); Glucose,Random 139 mg/dL (74-106); Potassium 3.9 meq/L (3.5-5.1); Sodium 144 meq/L (136-145)
[2018-03-09 06:27] LABS: Alanine Aminotransferase 28 U/L (12-78); Cholesterol 132 mg/dL (120-200); Triglycerides 97 mg/dL (42-150)
[2018-03-09 06:29] LABS: Alkaline Phosphatase 91 U/L (45-117); Chol/HDL Ratio 3.73 Ratio; HDL Cholesterol 35.3 mg/dL (40.0-60.0); LDL Cholesterol,Calculated 77 mg/dL (0-99); Lipase 1450 U/L (73-393)
[2018-03-09 07:22] VITALS: RESP 16
[2018-03-09] MEDS: Lisinopril 20 MG Tablet PO SCH (09:16)
[2018-03-09] MEDS: Senna/Docusate Sodium 8.6/50 MG Tablet PO SCH (09:16)
[2018-03-09] MEDS: Metoprolol Tartrate 25 MG Tablet PO SCH (09:16)
[2018-03-09 11:30] VITALS: BP 142/83; PULSE 64; TEMP 98.7; O2SAT 99
--- NOTE | 2018-03-09 15:05 | P.DS ---
DS: Providers Date of admission: 03/08/18 13:27 Primary care physician: Kaylee Montano MD DS: Diagnosis Discharge Diagnosis (1) Hypoglycemia: Status: Acute DS: Summary The is a 57 year old male patient with a past medical history which includes [place] Palsy, HTN, Glaucoma, chronic lower back pain, chronic kidney disease stage 2, senile cataracts, hyperlipidemia, diabetes mellitus. Patient [place] [facility] with a history of low blood sugar that occurred while at work earlier this evening. The patient reports that he administered his insulin Tresiba insulin at night prior to going to work at 10:30 PM. He reports that he administered 50 units. He reports that he then was running late for work and forgot to eat. While at work he became weak and sweaty. He reports that he checked his blood sugar and it was noted to be in the 40s. He reports that he ate crackers, drank orange juice, and had a health bar, however he continued to have generalized weakness. Hypoglycemia Diabetes mellitus administered his insulin Tresiba insulin at night prior to going to work at 10: 30 PM. He reports that he administered 50 units. He reports that he then was running late for work and forgot to eat. While at work he became weak and sweaty. He reports that he checked his blood sugar and it was noted to be in the 40s Blood sugar improved Continue diabetic diet blood glucose now improved Patient educated that he must eat if he takes his insulin Recommend patient follow up with PCP after DC Elevated lipase , patient clinically does not have pancreatitis Initial lipase 1017 repeat lipase 934 -> 1450 Patient denies abdominal pain at this time CONCLUSION: 1. No acute CT abnormality in the abdomen or pelvis. 2. Ancillary findings include multiple bilateral renal cystic lesions most of which are too small to fully characterize, small fat containing periumbilical hernia and mild scattered colonic diverticulosis. IV fluids lipid panel triglyceries 97, totatl cholesterol 132, LDL 77 [place] Palsy Chronic and stable HTN Continue patient's home amlodipine 5 mg p.o. daily, lisinopril 40 mg daily and metoprolol 25 mg p.o. twice daily Chronic kidney disease stage 2 Avoid nephrotoxic agents Hyperlipidemia Continue patient's home atorvastatin 40 mg p.o. daily Time Spent with Patient Total time spent providing and/or coordinating discharge services: Quality: VTE Deep Vein Thrombosis/Pulmonary Embolism Present on Admission: No Exam Narrative Exam Narrative: GENERAL: This is a well-nourished, well-developed patient, in no apparent distress. CARDIOVASCULAR: Regular rate and rhythm RESPIRATORY: Clear to auscultation. Breath sounds equal bilaterally. GASTROINTESTINAL: Abdomen soft, non-tender, nondistended. Normal active bowel sounds MUSCULOSKELETAL: Extremities without clubbing, cyanosis, or edema. NEURO: Alert & Oriented x4 to person, place, time, situation. Moves all ext x4 DS: Data Labs on day of discharge: Labs from last 24 hours 03/09/18 03/09/18 03/09/18 11:45 07:59 05:32 WBC RBC Hgb Hct MCV MCH MCHC RDW Plt Count MPV Neut % (Auto) Lymph % (Auto) Phillips % (Auto) Eos % (Auto) Baso % (Auto) Neut # (Auto) Lymph # (Auto) Phillips # (Auto) Eos # (Auto) Baso # (Auto) WBC Differential Differential Comment Sodium 144 Potassium 3.9 Chloride 109 H Carbon Dioxide 26.9 Anion Gap 8 BUN 15 Creatinine 1.52 H POC Glucose 189 H 107 Random Glucose 139 H Calcium 8.7 Total Bilirubin 0.4 AST 11 L ALT 28 Alkaline Phosphatase 91 Total Protein 7.0 Albumin 3.6 Triglycerides 97 Cholesterol 132 LDL Cholesterol, Calc 77 HDL Cholesterol 35.3 L Cholesterol/HDL Ratio 3.73 Lipase 1450 H 03/09/18 03/09/18 03/08/18 05:32 04:02 23:07 WBC 5.9 RBC 4.92 Hgb 14.7 Hct 43.9 MCV 89.2 MCH 29.9 MCHC 33.5 RDW 12.6 Plt Count 155 MPV 9.7 Neut % (Auto) 36.5 Lymph % (Auto) 49.6 H Phillips % (Auto) 9.2 H Eos % (Auto) 3.9 Baso % (Auto) 0.8 Neut # (Auto) 2.1 Lymph # (Auto) 2.9 Phillips # (Auto) 0.5 Eos # (Auto) 0.2 Baso # (Auto) 0.0 WBC Differential . Differential Comment Auto diff final Sodium Potassium Chloride Carbon Dioxide Anion Gap BUN Creatinine POC Glucose 171 H 401 H Random Glucose Calcium Total Bilirubin AST ALT Alkaline Phosphatase Total Protein Albumin Triglycerides Cholesterol LDL Cholesterol, Calc HDL Cholesterol Cholesterol/HDL Ratio Lipase 03/08/18 16:20 WBC RBC Hgb Hct MCV MCH MCHC RDW Plt Count MPV Neut % (Auto) Lymph % (Auto) Phillips % (Auto) Eos % (Auto) Baso % (Auto) Neut # (Auto) Lymph # (Auto) Phillips # (Auto) Eos # (Auto) Baso # (Auto) WBC Differential Differential Comment Sodium Potassium Chloride Carbon Dioxide Anion Gap BUN Creatinine POC Glucose 290 H Random Glucose Calcium Total Bilirubin AST ALT Alkaline Phosphatase Total Protein Albumin Triglycerides Cholesterol LDL Cholesterol, Calc HDL Cholesterol Cholesterol/HDL Ratio Lipase Impressions Chest X-Ray 03/08/18 05:06 CONCLUSION: No acute disease Abdomen/Pelvis CT 03/08/18 06:41 CONCLUSION: 1. No acute CT abnormality in the abdomen or pelvis. 2. Ancillary findings include multiple bilateral renal cystic lesions most of which are too small to fully characterize, small fat-containing periumbilical hernia and mild scattered colonic diverticulosis. Cervical Spine CT 03/08/18 06:41 CONCLUSION: 1. 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 2. Moderate to severe left neural foraminal stenosis at C5-6. Discharge Plan Discharge Disposition Patient Disposition: Discharge Home Discharge Condition Condition: Stable Discharge Order Discharge Orders: Discharge Order (Routine); Ordered 03/09/18 Ordered By: Gayathri Marr Discharge Details Anticipated Discharge Date: 03/09/18 Physicians Team Primary Care Provider: Kaylee Montano Attending Provider: Michael Bourne Rxs /Orders / Referrals /Forms Prescriptions: Continue latanoprost 0.005 % Drops 1 drp OPHTHALMIC (EYE) QPM RF: 0 amlodipine [Norvasc] 5 mg Tablet 5 mg PO DAILY RF: 0 insulin aspart U-100 [Novolog U-100 Insulin aspart] 100 unit/mL Solution 16 unit SUBCUT TID RF: 0 insulin degludec [Tresiba FlexTouch U-100] 100 unit/mL (3 mL) Insulin Pen 50 unit SUBCUT DAILY RF: 0 atorvastatin 40 mg Tablet 40 mg PO HS RF: 0 aspirin 325 mg Tablet 81 mg PO DAILY RF: 0 vitamin E 100 unit Capsule 100 unit PO DAILY RF: 0 ascorbic acid (vitamin C) [Vitamin C] 500 mg Tablet 500 mg PO DAILY RF: 0 metoprolol tartrate 25 mg Tablet 25 mg PO BID RF: 0 Ambulatory Orders / Order Sets / DME: Lipase (Routine) Timeframe: [id number] Location: Determined by Patient Ordered By: Gayathri Marr Referrals: Kaylee Montano MD [Primary Care Provider] - See Instructions (follow up in 1 week) Discharge Interventions Interventions: Discharge Planning - Case Management Last Done: 03/09/18 12:56 Status ED Status: Left Department
[2018-03-09] MEDS ORDERED: Latanoprost 0.005% Opth Drops 2.5 ML Bottle EACH EYE SCH (21:00)
== END 2018-03-09 22:35 | disposition home or self-care (01) ==
LOC: NEPC 04:20 → NEDA 08:46 → INTOOBSV 08:46 → NEPFCDU 15:15
PROVIDERS: ADMIT Hospitalist; ATTEND Hospitalist